=== PATIENT | male | born 1960 | race Two or more races ===

== ENCOUNTER 2018-12-16 19:35 | Inpatient (IN) | payer MEDICARE, MEDICAID ==
--- NOTE | 2018-12-16 20:28 | ED Physician Chart ---
ED Chief Complaint/HPI - Patient Information Date Seen:: 12/16/18 Time Seen:: 20:10 Chief Complaint:: fever History of Present Illness:: Patient had a temperature 100.1 degrees at his extended care facility today. He 's had a right foot ulcer for last 2 weeks. He says slight cough for 1 week productive of sputum. No abdominal pain. Patient's had the same dialysis shunt in the left arm for last 2 years. Patient still produces some urine. Allergies:: Allergies Allergy/AdvReac Type Severity Reaction Status Date / Time No Known Allergies Allergy Verified 12/16/18 19:36 Vitals:: Vital Signs - 8 hr 12/16/18 19:35 Temp 102.4 F HR 105 RR 20 BP 126/69 O2 Sat % 94 Historian:: Patient Review:: Transfer documents Reviewed ED Review of Systems - Review of Systems General/Constitutional: Fever, No chills, No weight loss, No weakness, No diaphoresis, No edema, No loss of appetite Skin: No skin lesions, No rash, No bruising Head: No headache, No light-headedness Eyes: No loss of vision, No pain, No diplopia ENT: No earache, No nasal drainage, No sore throat, No tinnitus Neck: No neck pain, No swelling, No thyromegaly, No stiffness, No mass noted Cardio Vascular: No chest pain, No palpitations, No PND, No orthopnea, No edema Pulmonary: No SOB, No cough, No sputum, No wheezing GI: No nausea, No vomiting, No diarrhea, No pain, No melena, No hematochezia, No constipation, No hematemesis G/U: No dysuria, No frequency, No hematuria Musculoskeletal: No bone or joint pain, No back pain, No muscle pain Endocrine: No polyuria, No polydipsia Psychiatric: No prior psych history, No depression, No anxiety, No suicidal ideation Hematopoietic: No bruising, No lymphadenopathy Allergic/Immuno: No urticaria, No angioedema Neurological: No syncope, No focal symptoms, No weakness, No paresthesia, No headache, No seizure, No dizziness, No confusion, No vertigo ED Past Medical History - Past Medical History Past Medical History: HTN, DM, Seizures, Other (N save renal disease on dialysis ; anemia; anxiety; a pancreatitis; diabetic retinopathy; aortic stenosis) Family History: Heart disease, Diabetes Melitus Social History: Smoker, Other (no current alcohol consumption) Surgical History: Appendectomy, other (dialysis shunt) Family Medical History - Family Member Mother History Unknown: Yes ED Physical Exam - Physical Examination General/Constitutional: Awake, Well-developed, well-nourished, Alert, No distress, GCS 15, Non-toxic appearing, Ambulatory Head: Atraumatic Eyes: Lids, conjuctiva normal, PERRL, EOMI Skin: Well hydrated, No lymphadenopathy Other Skin comments:: About 6 cm in diameter black eschar right heel with slight surrounding erythema ENMT: External ears, nose nl, Nasal exam nl, Lips, teeth, gums nl Neck: Nontender, Full ROM w/o pain, No JVD, No nuchal rigidity, No bruit, No mass, No stridor Respiratory: Nl effort/Exclusion, Clear to Auscultation, No Wheeze/Rhonchi/Rales Cardio Vascular: RRR, NL S1 S2 Other Cardio Vascular comments:: 4/6 systolic murmur GI: No tenderness/rebounding/guarding, No organomegaly, No hernia, Normal BS's, Nondistended, No mass/bruits, No McBurney tenderness : No CVA tenderness Extremities: No tenderness or effusion, Full ROM, normal strength in all extremities, No edema, Normal digits & nails Neuro/Psych: Alert/oriented, No focal deficits Misc: Normal back, No paraspinal tenderness ED Labs/Radiology/EKG Results - Lab Results Results: Laboratory Results WBC 21.4 Th/cmm (4.8-10.8) H* 12/16/18 21:15 RBC 3.39 Mil/cmm (4.30-5.70) L 12/16/18 21:15 Hgb 9.6 gm/dL (12-16) L 12/16/18 21:15 Hct 28.7 % (41.0-60) L 12/16/18 21:15 MCV 84.5 fl (80-99) 12/16/18 21:15 MCH 28.4 pg (26.0-30.0) 12/16/18 21:15 MCHC Differential 33.6 pg (28.0-36.0) 12/16/18 21:15 RDW 13.8 % (11.5-20.0) 12/16/18 21:15 Plt Count 363 Th/cmm (150-400) 12/16/18 21:15 MPV 7.5 fl 12/16/18 21:15 Add Manual Diff YES 12/16/18 21:15 Neutrophils % 89.0 % (40.0-80.0) H 12/16/18 21:15 Lymphocytes % 2.5 % (20.0-50.0) L 12/16/18 21:15 Monocytes % 7.9 % (2.0-10.0) 12/16/18 21:15 Eosinophils % 0.6 % (0.0-5.0) 12/16/18 21:15 Smear Path Review 12/16/18 21:15 Laboratory Results WBC 21.4 Th/cmm (4.8-10.8) H* 12/16/18 21:15 RBC 3.39 Mil/cmm (4.30-5.70) L 12/16/18 21:15 Hgb 9.6 gm/dL (12-16) L 12/16/18 21:15 Hct 28.7 % (41.0-60) L 12/16/18 21:15 MCV 84.5 fl (80-99) 12/16/18 21:15 MCH 28.4 pg (26.0-30.0) 12/16/18 21:15 MCHC Differential 33.6 pg (28.0-36.0) 12/16/18 21:15 RDW 13.8 % (11.5-20.0) 12/16/18 21:15 Plt Count 363 Th/cmm (150-400) 12/16/18 21:15 MPV 7.5 fl 12/16/18 21:15 Add Manual Diff YES 12/16/18 21:15 Neutrophils % 89.0 % (40.0-80.0) H 12/16/18 21:15 Lymphocytes % 2.5 % (20.0-50.0) L 12/16/18 21:15 Monocytes % 7.9 % (2.0-10.0) 12/16/18 21:15 Eosinophils % 0.6 % (0.0-5.0) 12/16/18 21:15 Smear Path Review 12/16/18 21:15 Sodium 128 mEq/L (136-145) L 12/16/18 21:15 Potassium 3.8 mEq/L (3.5-5.1) 12/16/18 21:15 Chloride 88 mEq/L (98-107) L 12/16/18 21:15 Carbon Dioxide 27.9 mEq/L (21.0-31.0) 12/16/18 21:15 Anion Gap 15.9 (7.0-16.0) 12/16/18 21:15 BUN 32 mg/dL (7-25) H 12/16/18 21:15 Creatinine mg/dL (0.7-1.3) 12/16/18 21:15 Est GFR ( Amer) 17.4 ml/min (>90) 12/16/18 21:15 Est GFR (Non-Af Amer) 14.4 ml/min 12/16/18 21:15 BUN/Creatinine Ratio 7.1 12/16/18 21:15 Glucose 396 mg/dL (70-105) H 12/16/18 21:15 Whole Bld Lactic Acid 1.40 mmol/L (0.60-1.99) 12/16/18 21:15 Calcium 9.1 mg/dL (8.6-10.3) 12/16/18 21:15 - EKG Interpretations Rate & Rhythm: sinus tachycardia with a rate of 109 [place]: normal axis Comments:: Anterior septal MD age indeterminate ED Assessment - Assessment General Assessment: Etiology of the patient's fever is uncertain. Urinalysis results are pending. Patient does have a black eschar right heel with slight surrounding erythema indicating cellulitis. Patient covered for both a gram-positive and gram- negative infection with vancomycin and Rocephin. ED Septic Shock - . Is Septic Shock (SBP<90, OR Lactate>4 mmol\L) present?: No - <6hrs of presentation: Vital Signs: Vital Signs - 8 hr 12/16/18 19:35 Temp 102.4 F HR 105 RR 20 BP 126/69 O2 Sat % 94 ED Reassessment (Disposition) - Reassessment Reassessment Condition:: Unchanged - Diagnosis Diagnosis:: Acute febrile illness; renal failure on dialysis; diabetes; hyperglycemia; leukocytosis with a left shift; eschar and cellulitis right heel - Patient Disposition Admitted to:: Telemetry Spoke to:: Washington Muse Admitting Medical Physician:: Washington Muse Condition at Disposition:: Stable, Unchanged
[2018-12-16] MEDS ORDERED: cefTRIAXone 1 GM in Sodium Chloride 0.9% 50 ML IV ONE (20:41)
[2018-12-16 21:24] LABS: HEMOGLOBIN 9.6 gm/dL (12-16); LYMPHOCYTE ABSOLUTE 0.5 Th/cmm (1.5-3.0)
[2018-12-16 21:26] LABS: % EOSINOPHILS 0.6 % (0.0-5.0); % LYMPHOCYTES 2.5 % (20.0-50.0); % MONOCYTES 7.9 % (2.0-10.0); EOSINOPHILE ABSOLUTE 0.1 Th/cmm (0.1-0.4); HEMATOCRIT 28.7 % (41.0-60); MEAN CELL VOLUME 84.5 fl (80-99); MEAN CORPUSCULAR HEMOGLOBIN 28.4 pg (26.0-30.0); MEAN CORPUSCULAR HGB CONC 33.6 pg (28.0-36.0); MEAN PLATELET VOLUME 7.5 fl; MONOCYTE ABSOLUTE 1.7 Th/cmm (0.3-1.0); NEUTROPHILE ABSOLUTE 19.1 Th/cmm (1.8-8.0); PLATELET COUNT 363 Th/cmm (150-400); RED BLOOD COUNT 3.39 Mil/cmm (4.30-5.70); RED CELL DISTRIBUTION WIDTH 13.8 % (11.5-20.0)
[2018-12-16 21:29] LABS: WHITE BLOOD COUNT 21.4 Th/cmm (4.8-10.8)
[2018-12-16 21:39] LABS: ANION GAP 15.9 (7.0-16.0); CALCIUM SERUM 9.1 mg/dL (8.6-10.3); CARBON DIOXIDE 27.9 mEq/L (21.0-31.0); GFR AFRICAN-AMERICAN 17.4 ml/min (>90); GFR NON AFRICAN-AMERICAN 14.4 ml/min; POTASSIUM SERUM 3.8 mEq/L (3.5-5.1)
[2018-12-16 22:01] LABS: BAND NEUTROPHILE 0 % (0-10)
[2018-12-16 22:02] LABS: BASOPHIL 0 % (0-3)
[2018-12-16 22:05] LABS: EOSINOPHIL 0 % (0-5); MONOCYTE 7 % (2-10); NEUTROPHILS 90 % (40-80)
[2018-12-16 22:06] LABS: LYMPHOCYTE 3 % (20-50)
[2018-12-16] MEDS ORDERED: INSULIN HUMAN REGULAR 100 UNITS/ML UNIT SUBQ ONE (22:43)
[2018-12-16] MEDS ORDERED: INSULIN HUMAN REGULAR 100 UNITS/ML UNIT ONE (22:49)
[2018-12-17] MEDS ORDERED: Morphine Sulfate 2 mg/mL 1mL Syr IVP PRN (00:03)
[2018-12-17 00:12] VITALS: BP 138/72
[2018-12-17] MEDS ORDERED: Sodium Chloride 0.9% 1,000 ML IV SCH (00:45)
[2018-12-17] MEDS ORDERED: Dextrose 50% 50 mL Abboject IVP PRN (00:56)
[2018-12-17] MEDS ORDERED: GLUCAGON HCl 1 MG KIT IM PRN (00:56)
[2018-12-17 06:02] LABS: % EOSINOPHILS 1.2 % (0.0-5.0); % LYMPHOCYTES 3.4 % (20.0-50.0); % MONOCYTES 7.3 % (2.0-10.0); % NEUTROPHILS 88.1 % (40.0-80.0); EOSINOPHILE ABSOLUTE 0.2 Th/cmm (0.1-0.4); HEMATOCRIT 27.7 % (41.0-60); HEMOGLOBIN 9.1 gm/dL (12-16); LYMPHOCYTE ABSOLUTE 0.6 Th/cmm (1.5-3.0); MEAN CELL VOLUME 85.6 fl (80-99); MEAN CORPUSCULAR HEMOGLOBIN 28.1 pg (26.0-30.0); MEAN CORPUSCULAR HGB CONC 32.9 pg (28.0-36.0); MEAN PLATELET VOLUME 7.8 fl; MONOCYTE ABSOLUTE 1.4 Th/cmm (0.3-1.0); NEUTROPHILE ABSOLUTE 16.9 Th/cmm (1.8-8.0); PLATELET COUNT 318 Th/cmm (150-400); RED BLOOD COUNT 3.24 Mil/cmm (4.30-5.70); RED CELL DISTRIBUTION WIDTH 13.2 % (11.5-20.0)
[2018-12-17 06:17] LABS: ANION GAP 14.2 (7.0-16.0); CARBON DIOXIDE 28.4 mEq/L (21.0-31.0); CHOLESTEROL 100 mg/dL (<200); GFR AFRICAN-AMERICAN 15.1 ml/min (>90); GFR NON AFRICAN-AMERICAN 12.4 ml/min; HDL -HIGH DENSITY LIPOPROTEIN 17 mg/dL (23-92); POTASSIUM SERUM 3.6 mEq/L (3.5-5.1); TRIGLYCERIDES 249 mg/dL (<150)
[2018-12-17 06:22] LABS: WHITE BLOOD COUNT 19.1 Th/cmm (4.8-10.8)
[2018-12-17 06:29] LABS: CREATININE - SERUM 5.1 mg/dL (0.7-1.3)
[2018-12-17 06:50] LABS: INF A SCREEN NEG FOR INF A; INF B SCREEN NEG FOR INF B
[2018-12-17] MEDS ORDERED: INSULIN LISPRO SLIDING SCALE 100 UNITS/ML UNIT SUBQ SCH (07:30)
--- NOTE | 2018-12-17 07:53 | Diagnostic Imaging Report ---
CHEST X-RAY: AP view INDICATION: pain COMPARISON: None FINDINGS: There is mild elevation of the right hemidiaphragm. Increased interstitial lung markings are noted. There is no focal consolidation or pleural effusions The heart is at the upper limits of normal in size. The osseous structures are intact. Old left midclavicular fracture is noted. Vascular stent of the left upper extremity is partially visualized. IMPRESSION: Increased interstitial lung markings probably due to chronic changes. No evidence of rashida CHF No focal consolidation identified. Left upper extending vascular stent, please correlate with clinical history.
[2018-12-17 08:02] LABS: URINE SOURCE RANDOM
[2018-12-17 08:11] LABS: BAND NEUTROPHILE 0 % (0-10); BASOPHIL 0 % (0-3); EOSINOPHIL 0 % (0-5); LYMPHOCYTE 3 % (20-50); MONOCYTE 7 % (2-10); NEUTROPHILS 90 % (40-80)
[2018-12-17 08:12] LABS: PLATELET ESTIMATE ADEQUATE (NORMAL)
[2018-12-17 08:19] LABS: URINE BILIRUBIN NEGATIVE (NEGATIVE); URINE BLOOD NEGATIVE (NEGATIVE); URINE GLUCOSE (UA) 500 mg/dL (NEGATIVE); URINE KETONE NEGATIVE (NEGATIVE); URINE LEUKOCYTE ESTERASE NEGATIVE (NEGATIVE); URINE MICROSCOPIC INDICATED? YES; URINE NITRATE NEGATIVE (NEGATIVE); URINE PROTEIN >=300 mg/dL (NEGATIVE); URINE UROBILINOGEN 0.2 E.U./dL (0.2 - 1.0)
[2018-12-17 08:26] LABS: URINE COLOR YELLOW
[2018-12-17] MEDS ORDERED: Lactulose 10 Gm/15 mL 30mL UDC PO PRN (08:27)
[2018-12-17 08:28] LABS: URINE CLARITY HAZY (CLEAR)
[2018-12-17 08:36] LABS: URINE BACTERIA FEW /hpf (NONE SEEN); URINE COARSE GRANULAR CAST 0-2 /lpf (NONE SEEN); URINE RBC 0-2 /hpf (0-5)
[2018-12-17] MEDS ORDERED: NUT TX IMPAIRED RENAL FXN SOY PO SCH (09:00)
[2018-12-17] MEDS ORDERED: [UNRECOGNIZED DRUG - OTHER] PO SCH (09:00)
[2018-12-17] MEDS: Levetiracetam 500 mg/5mL 5mL UDSyr *for ORAL USE ONLY PO SCH ×2 (10:14→18:04)
[2018-12-17] MEDS: Vitamin B Complex w/Vitamin C Tab PO SCH (10:15)
[2018-12-17] MEDS: Pantoprazole 40 mg EC Tab PO SCH (10:15)
[2018-12-17] MEDS: INSULIN LISPRO SLIDING SCALE 100 UNITS/ML UNIT SUBQ SCH ×3 (12:04→22:00)
[2018-12-17] MEDS ORDERED: Probiotic Screen MC PRN (14:13)
[2018-12-17] MEDS ORDERED: cefTRIAXone 1 GM in 0.9% NS 50 ML IV SCH (18:00)
[2018-12-17] MEDS: Atorvastatin Calcium 10 MG TAB PO SCH (21:50)
[2018-12-18] MEDS ORDERED: Albumin 25% 25gm/100mL 25 GM/100 ML BTL IV PRN
[2018-12-18] MEDS: Heparin Sod 1,000Units/ML 1,000 UNITS/ML VIAL HD SCH ×2 (00:26→17:04)
--- NOTE | 2018-12-18 02:05 | Consultation ---
DATE OF CONSULTATION: 12/17/2018 SURGICAL CONSULTATION NOTE TIME: 12:47 p.m. HISTORY OF PRESENT ILLNESS: The patient is a 57-year-old male who presents to the [facility] ER with right heel ulcer gangrene and fever of 100.1 at his extended care facility, transferred to the ER. He has a slight cough with 1 week productive sputum. He has end-stage renal disease. The patient has a left arm dialysis shunt, gets ongoing dialysis. He had a fever of 102.4. He has right heel gangrene. He also has a history of left knee fracture and has a brace on there at this time. He has difficulty ambulating at this time. Surgical consultation requested. ALLERGIES: He has no known drug allergies. PAST MEDICAL HISTORY: Hypertension, diabetes, seizures, anxiety, pancreatitis, diabetic retinopathy, aortic stenosis. FAMILY HISTORY: Heart disease and diabetes. SOCIAL HISTORY: Smoker. PAST SURGICAL HISTORY: Appendectomy and arm shunt. PHYSICAL EXAMINATION: VITAL SIGNS: He is 79 kilograms, BMI of 26.8, he has a fever of 101.0 on admission, he has been afebrile, vital signs stable. CHEST: Clear to auscultation bilaterally. GENERAL: He is awake, follows commands, in no acute distress. CARDIAC: Regular rhythm and rate. ABDOMEN: Otherwise, soft, nontender, nondistended. EXTREMITIES: His left leg in a brace. He has knee scars, which are well healed. His right heel, he has a large patch of gangrene, which is malodorous. There is no drainage from the site, but there is a wet gangrene. He does have a palpable posterior tibial pulse but no obvious dorsalis pedis pulse. The foot is warm. He has no ischemic changes of his toes, maybe pressure ulceration. LABORATORY AND DIAGNOSTIC DATA: His white blood cell count was 21.4 on admission down to 19.1 today, H and H is 9 and 27.7, platelet count is 318, he has 0 bands. His sodium is 128, chloride is 89, BUN and creatinine 38 and 5.1, glucose 252, triglycerides 249. His chest x-ray reveals increased interstitial lung markings, probably due to chronic changes. No evidence of rashida CHF. No focal consolidation. Left upper extremity vascular stent, please correlate with clinical history. MEDICATIONS: Include Coreg, Rocephin, hydralazine, insulin, lactulose. He is on Keppra, Cozaar. IMPRESSION/PLAN: The patient with multiple medical problems, multiple consultants on the case. He is poorly ambulatory because of the left knee surgery, reported fracture with a left knee brace. The patient has a significant right gangrenous heel ulcer. His wet gangrene and malodorous probably accounting for the patient's fever and leukocytosis. The patient is on IV antibiotics at this time. I would recommend arterial ultrasound studies to evaluate for arterial insufficiency and elevate the leg on pillows and avoid pressure to the heel, dressing changes at this point, but I would recommend sharp excisional debridement of this site to control bleeding. The patient may have a component of osteomyelitis and it is unstageable at this time until further debridement can be performed. Because of his aortic stenosis, would get Cardiology to evaluate the patient preoperative for anesthesia purposes. [facility]# [id number]
--- NOTE | 2018-12-18 02:44 | Consultation ---
DATE OF CONSULTATION: 12/17/[address] Muse. HISTORY OF PRESENT ILLNESS: This is a 57-year-old male patient. The patient has a right foot ulcer for 2 weeks, which gradually deteriorated. Following this, the patient is admitted. The patient has elevated temperature. PAST MEDICAL HISTORY: Diabetes mellitus type 2, insulin-dependent; diabetic CKD stage V; end-stage renal disease, on dialysis; diabetic peripheral neuropathy; diabetic retinopathy; hyperlipidemia; seizure disorder; and sinus tachycardia. FAMILY HISTORY: Unremarkable. SOCIAL HISTORY: No history of smoking, alcohol abuse. ALLERGIES: No known allergies. PHYSICAL EXAMINATION: VITAL SIGNS: Blood pressure 126/90, pulse 105, and temperature 101. HEAD: Normocephalic. No lumps or bumps. Eyes, pupils, the patient has diabetic retinopathy. NECK: JVD flat. Thyroid not palpable. Lymph nodes not palpable. CHEST: Shows increased AP diameter. No kyphosis or scoliosis. LUNGS: Bilateral bronchovesicular breath sounds. HEART: PMI fifth intercostal space with lateral to midclavicular line. S1, S2. No S3, S4, soft systolic murmur. ABDOMEN: Soft. Liver, spleen not palpable. No organomegaly. Bowel sounds active. NEUROLOGIC: Unremarkable. EXTREMITIES: Peripheral pulses 2+. No pedal edema. CLINICAL IMPRESSION: 1. Right foot ulcer. 2. Hypertension. 3. Diabetes mellitus type 2, insulin-dependent. 4. Seizure disorder. 5. Iron deficiency anemia. 6. Diabetic chronic kidney disease, stage V. 7. End-stage renal disease, on dialysis. 8. Anxiety. 9. History of pancreatitis. 10. Diabetic retinopathy. 11. Diabetic peripheral neuropathy. PLAN: We will continue present management. The patient's EKG unremarkable. The patient is cleared for surgery. JOB# [id number]
--- NOTE | 2018-12-18 03:48 | Consultation ---
DATE OF CONSULTATION: 12/17/2018 INFECTIOUS DISEASE CONSULTATION REFERRING PHYSICIAN: Eze Muse M.D. REASON FOR CONSULTATION: Sepsis. HISTORY OF PRESENT ILLNESS: The patient is a 57-year-old male with past medical history of paraplegia, wheelchair bound; CKD, stage 5, on hemodialysis; hypertension, seizure disorder, diabetes mellitus type 2, pancreatitis, anemia of chronic disease, diabetic retinopathy, aortic stenosis, brought in from nursing facility for fever. On initial evaluation, the patient's temperature was 102.4 degrees Fahrenheit and WBC count was 21,400. The patient also has dry gangrenous wound at the pressure point of the right heel. The patient was started on Rocephin. PAST SURGICAL HISTORY: Includes appendectomy and AV shunt placement in left upper extremity for last 2 years. MEDICATIONS: See medication reconciliation sheet. Antibiotic ruiz, the patient is on Rocephin. ALLERGIES: NKDA. SOCIAL HISTORY: The patient lives in a nursing facility. The patient has history of alcohol use in the past. He has a history of smoking. No drug use. FAMILY HISTORY: Noncontributory. IMMUNIZATION STATUS: Unknown. REVIEW OF SYSTEMS: GENERAL: The patient has fever, but no chills, no weight loss, no weakness. HEENT: No diplopia, no photophobia, no sore throat. RESPIRATORY: No cough, no shortness of breath. CARDIOVASCULAR: No chest pain, no palpitation. GASTROINTESTINAL: No nausea, no vomiting, no diarrhea, no constipation. GENITOURINARY: No dysuria. MUSCULOSKELETAL: No muscle pain, no joint pain. SKIN: The patient has a right heel ulcer. PHYSICAL EXAMINATION: VITAL SIGNS: Current vital signs shows temperature is 99.5 degrees Fahrenheit, pulse is 91, respirations 18, and blood pressure is 160/68. GENERAL: The patient is comfortable, lying in bed, in no acute distress. HEENT: Head is normocephalic, atraumatic. Oral cavity is moist, pink tongue. NECK: Supple, no JVD, no carotid bruit. Trachea in midline. CHEST: Bilateral breath sounds heard. No crackles or wheezing. HEART: S1, S2 within normal limits. Regular rhythm. No murmur, no gallop. ABDOMEN: Soft, nontender, nondistended. Bowel sounds present. EXTREMITIES: No cyanosis, no clubbing, no edema. The patient has dry unstageable ulcer of the right heel at pressure point. There is no discharge, no erythema. The ulcer base is black. CENTRAL NERVOUS SYSTEM: He is alert, awake, and oriented x 3. LABORATORY DATA: Current lab shows WBC count is 19,100, hemoglobin is 9.1, hematocrit is 27.7, platelets are 318,000, neutrophils 88.1%. Sodium is 128, potassium is 3.6, chloride is 89, bicarbonate is 28.4, BUN is 38, creatinine is 5.1, and glucose is 252. Lactic acid was 1.4. Urinalysis, negative leukoesterase, negative nitrite. Influenza A and B screen is negative. IMAGING DATA: Chest x-ray shows chronic changes. IMPRESSION: 1. Sepsis, maybe bacteremia versus other etiology unknown. 2. Right heel decubitus ulcer. 3. Hypertension. 4. Diabetes mellitus type 2. 5. Chronic kidney disease, stage 5, on hemodialysis. 6. Anemia of chronic disease. RECOMMENDATIONS AND PLAN: 1. We will follow the blood cultures. 2. CT of abdomen and pelvis. 3. Antibiotic ruiz, start vancomycin and Zosyn. Thank you, Dr. Eze Muse, for involving me in taking care of this patient. JOB# [id number] CHERYL
--- NOTE | 2018-12-18 04:32 | Consultation ---
DATE OF CONSULTATION: 12/17/2018 FIXED ASSETS ACCOUNTANT: Curry Berger M.D. ATTENDING: Dr. Cj Muse. HISTORY OF PRESENT ILLNESS: This is a 57-year-old male with past medical history of end-stage renal disease on hemodialysis, who came in because of fever. A few hours prior to admission, the patient had a temperature of 100.1 degrees. He has occasional cough, but no serious congestion, sore throat and also possible diarrhea, or dysuria. He then proceeded to the Emergency Room. His temperature was 102.4 degrees. White count was 21.4. Chest x-ray revealed no acute disease. He was started on Rocephin. He has a history of end-stage renal disease on hemodialysis for the last couple of years. He is dialyzed on Tuesdays, and Saturdays at [facility]. PAST MEDICAL HISTORY: 1. End-stage renal disease on hemodialysis. 2. Dyslipidemia. 3. Type 2 diabetes mellitus. 4. Epilepsy. 5. Chronic right heel ulcer. 6. Anemia of chronic disease. 7. Left medial tibial plateau fracture. PAST SURGICAL HISTORY: 1. Status post appendectomy. 2. Status post creation of left AV fistula. CURRENT MEDICATIONS: Currently on acetaminophen, atorvastatin, carvedilol, ceftriaxone, diphenhydramine hydralazine, insulin, lactulose, levetiracetam, losartan, morphine sulfate, pantoprazole, sevelamer, vancomycin. ALLERGIES: No known drug allergies. SOCIAL HISTORY: Denied any history of alcohol or tobacco use. He currently resides at [place]. FAMILY HISTORY: Noncontributory to present illness. REVIEW OF SYSTEMS: Review of 12-point systems were unremarkable except for those signs and symptoms mentioned in my H and P. PHYSICAL EXAMINATION: GENERAL: The patient is alert, verbal, somewhat drowsy, not in any distress. VITAL SIGNS: His blood pressure is 140/49, pulse is 89, temperature is 101.4 degrees. SKIN: Good turgor, warm, no rash, no jaundice appreciated. HEENT: Head normocephalic, atraumatic. Eyes: Extraocular muscles intact. Pupils equal, round, reactive to light and accommodates. Anicteric sclerae. Pale conjunctivae. Nose: Midline nasal septum. Mouth: Dry mucosa, poor dentition. NECK: Supple, no adenopathy, no thyromegaly, no bruits. Trachea palpated in the midline. CHEST AND CARDIOVASCULAR: S1, S2. No rub, murmur or gallop appreciated. Point of maximal impulse fifth intercostal space, left midclavicular line. No abdominal or femoral bruits appreciated. LUNGS: Equal expansion. No use of accessory muscles. No supraclavicular retractions. Decreased breath sounds, few rhonchi, but no rales nor wheezes appreciated. ABDOMEN: Globular, soft, positive for bowel sounds. No bruits either diastolic or systolic. No pulsatile masses. No muscle guarding or rebound. RECTAL: The patient refused. GENITOURINARY: Normal appearing male genitalia. MUSCULOSKELETAL: No effusions present in his joints, but unable to assess his range of motion. EXTREMITIES: No evidence of edema, cyanosis, nor clubbing with palpable femoral, but unable to fully appreciate popliteal and dorsalis pedis pulses. He has I would say 8 x 10 cm black eschar at the heel of his right foot. There is no visible drainage. NEUROLOGIC: The patient is drowsy, but arousable, able to give simple responses and then falls back to sleep. Thus, he was not able to participate in my neuro exam. LABORATORY DATA: Showed a white count of 19.1, hemoglobin 9.1, hematocrit 27.7, platelets 318, polys 88.1%. Sodium 128, potassium 3.6, chloride 89, CO2 of 28, BUN 38, creatinine 5.1, glucose 394, triglycerides 249, cholesterol 100, LDL 26, HDL 17, TSH 0.9. IMPRESSION: 1. End-stage renal disease on hemodialysis. 2. Right heel ulcer, possible osteomyelitis. 3. Dyslipidemia. 4. Type 2 diabetes mellitus with chronic kidney disease. 5. Essential hypertension with chronic kidney disease. 6. History of epilepsy. 7. Anemia of chronic disease. 8. Left medial tibial plateau fracture, status post repair. PLAN: 1. Hemodialysis as scheduled. 2. Follow up wound culture and sensitivity. 3. Also follow up blood culture. 4. Consider switching to Zosyn for better coverage. 5. Consider also MRI of right foot to accurately determine presence of osteomyelitis. 6. Follow up electrolytes and CBC. 7. Antipyretics. JOB# [id number]
[2018-12-18 06:26] LABS: HEMATOCRIT 25.4 % (41.0-60); HEMOGLOBIN 8.4 gm/dL (12-16); MEAN CELL VOLUME 85.5 fl (80-99); MEAN CORPUSCULAR HEMOGLOBIN 28.2 pg (26.0-30.0); MEAN PLATELET VOLUME 8.3 fl; PLATELET COUNT 307 Th/cmm (150-400); RED BLOOD COUNT 2.97 Mil/cmm (4.30-5.70); RED CELL DISTRIBUTION WIDTH 13.5 % (11.5-20.0)
[2018-12-18] MEDS: INSULIN LISPRO SLIDING SCALE 100 UNITS/ML UNIT SUBQ SCH ×4 (06:31→20:00)
[2018-12-18] MEDS: Pantoprazole 40 mg EC Tab PO SCH (06:31)
[2018-12-18 06:45] LABS: ANION GAP 14.8 (7.0-16.0); CALCIUM SERUM 8.6 mg/dL (8.6-10.3); CARBON DIOXIDE 26.3 mEq/L (21.0-31.0); GFR AFRICAN-AMERICAN 11.2 ml/min (>90); GFR NON AFRICAN-AMERICAN 9.2 ml/min; MAGNESIUM 1.8 mg/dL (1.9-2.7); PHOSPHOROUS 1.9 mg/dL (2.5-5.0); POTASSIUM SERUM 4.1 mEq/L (3.5-5.1)
[2018-12-18] MEDS ORDERED: INSULIN ASPART, RECOMBINANT 100 UNITS/ML SUBQ SCH (07:30)
[2018-12-18] MEDS ORDERED: INSULIN ASPART RECOMBINANT SUBQ SCH (07:30)
[2018-12-18 07:50] LABS: WHITE BLOOD COUNT 20.2 Th/cmm (4.8-10.8)
[2018-12-18 07:53] LABS: CREATININE - SERUM 6.6 mg/dL (0.7-1.3)
[2018-12-18 07:54] LABS: BAND NEUTROPHILE 3 % (0-10); BASOPHIL 0 % (0-3); EOSINOPHIL 2 % (0-5); LYMPHOCYTE 6 % (20-50); MONOCYTE 4 % (2-10); NEUTROPHILS 85 % (40-80)
[2018-12-18 07:55] LABS: PLATELET ESTIMATE ADEQUATE (NORMAL)
[2018-12-18] MEDS: Lactobacillus Rhamnosus GG 15 Billion CFU CAP.SPRINK PO SCH (09:12)
[2018-12-18] MEDS: Vitamin B Complex w/Vitamin C Tab PO SCH (09:12)
--- NOTE | 2018-12-18 10:01 | Diagnostic Imaging Report ---
Right lower extremity arterial Doppler study HISTORY: Right heel gangrene arterial deficiency COMPARISON: None Technique: Longitudinal and transverse sonographic images of the right lower extremity arteries were obtained with doppler analysis. FINDINGS: Exam of the right side demonstrates moderate atherosclerosis greatest distally with diffuse monophasic waveforms extending from the right superficial femoral to the right dorsalis pedis artery. No sonographic evidence of occlusion. Right SARAH 0.79 IMPRESSION: Moderate atherosclerotic vascular disease greatest distally. No sonographic evidence of occlusion. If indicated CT or conventional angiography may be obtained for further assessment. Right SARAH 0.79.
--- NOTE | 2018-12-18 10:30 | Diagnostic Imaging Report ---
CT abdomen and pelvis without intravenous contrast Indication: Abdominal pain Comparison: None, Technique: Axial images were obtained from the lung bases to the bilateral proximal femurs without IV contrast. Coronal reconstructions were made. total DLP: 664, CTDI12.2 FINDINGS: Exam is limited due to body habitus. Chronic lung changes are noted with bibasilar passive atelectatic changes. Assessment of the solid organs is limited due to lack of IV contrast. There is diffuse atherosclerosis with coronary artery calcifications. No evidence of focal hepatic lesions. Splenic artery calcifications are noted. No focal lesions. Limited assessment of pancreas sensors no focal lesions. No focal adrenal lesions. There are nonspecific bilateral perinephric inflammatory changes with punctate bilateral renal calcifications. No hydronephrosis. Urinary bladder wall thickening is noted. Small bilateral fat-containing inguinal hernias are noted. There is copious amount of stool throughout the colon. Small amount of free fluid is seen within the right lower quadrant. The appendix cannot be clearly identified. No free air. Degenerative changes of the spine are noted advanced facet L5/S1 with endplate irregularities and 2 mm anterolisthesis probably due to severe facet arthropathy in this level. There is mild anasarca. IMPRESSION: Small amount of free fluid in the right lower quadrant, etiology uncertain. Appendix is not clearly identified. Suspicious for appendicitis is low. Note there may be cecal wall thickening/inflammatory process in this region. Clinical correlation and follow-up is recommended. If indicated short-term follow up CT with IV and oral contrast may be obtained. . Diverticulosis without diverticulitis. Moderate stool is also seen within the colon. Urinary bladder wall thickening which may be due to underlying inflammatory process and cystitis. Mild nonspecific bilateral perinephric inflammatory changes. Diffuse atherosclerosis including coronary artery calcifications. Mild anasarca. Degenerative changes at L4/L5 with endplate sclerotic changes, irregularities and Schmorl's nodes. There is also 2 mm in anterolisthesis at this level likely due to facet arthropathy. No inflammatory process or infectious process causing the degenerative joint disease in this region is less likely, however, clinical correlation is needed.
--- NOTE | 2018-12-18 11:54 | History and Physical ---
History of Present Illness - HPI Chief Complaint: 57 y/o male patient was brought into ER with complaints of fever and cough with phlegm x 1 week. Patient complains of right foot pain and ulcer x 2 weeks. HPI: 57 y/o male patient was admitted to [facility] due to complaints of fever and cough with phlegm x 1 week. Patient complains of right foot pain and ulcer x 2 weeks. Patient has history of Anxiety, Hypertension, Diabetes, Seizures, Renal disease and is on Dialysis. Patient had an ER assessment and had a complete workup done. Arterial Doppler of right lower extremity was performed which showed Moderate Atherosclerotic vascular disease. Patient was diagnosed with Moderate Atherosclerotic vascular disease, Renal failure, On Dialysis, Hyperglycemia, Leukocytosis is with left shift, Eschar and Cellulitis of Right heel, Anemia and Anxiety. Patient will have an ID consult, Tank Storage Supervisor consult and Plastic Surgeon consult for Wound care. I will follow, treat and monitor patient. Patient will continue present treatment plan as ordered. Vital Signs: Last Vital Signs Temp 98.9 F 12/18/18 08:00 Pulse 77 12/18/18 09:20 Resp 18 12/18/18 08:00 BP 137/61 12/18/18 09:20 Pulse Ox 97 12/18/18 08:00 Past Medical History Cardiovascular: Report: HTN Pulmonary: Report: Other (cough with phlegm.) ORDER DETAILER: Report: No Pertinent Hx GI: Report: No Pertinent Hx Psych: Report: Anxiety Musculoskeletal: Report: Other (right foot ulcer.) Rheumatologic: Report: No pertinent Hx Infectious Disease: Report: No Pertinent Hx Renal/: Report: Acute Renal Failure Endocrine: Report: Diabetes Dermatology: Report: Cellulitis - Past Surgical History Past Surgical History: Appendectomy Family Medical History - Family Member Mother History Unknown: Yes Social History Smoke: 1 pack per day Alcohol: None Drugs: None Lives: Group Home Domestic Violence: Negative Health Maintenance Health Maintenance: Other (see chart.) - Medications Home Medications: Home Medication Medication Instructions Recorded Type Amino Acids/Protein Hydrolys 30 ml PO BID 12/16/18 History [Pro-Stat Sugar Free 887 ml] Atorvastatin Calcium [Lipitor] 20 mg PO HS 12/16/18 History Carvedilol [Coreg] 3.125 mg PO Q12H 12/16/18 History Dextrose [Glucose Gel] 15 gm PO PRN PRN 12/16/18 History Diphenhydramine HCL [Benadryl] 25 mg PO Q6H PRN 12/16/18 History Folic Acid [Folate*] 1 mg PO DAILY 12/16/18 History GLUCAGON HCl [Glucagen Diagnostic 1 mg IJ PRN PRN 12/16/18 History Kit] Hydralazine [Apresoline*] 50 mg PO Q8H 12/16/18 History Insulin Aspart, Recombinant 20 unit SUBQ QDAC 12/16/18 History [NovoLOG] Insulin Human Regular [NovoLIN R] See Protocol SUBQ ACHS 12/16/18 History Lactulose 20 gm PO DAILY PRN 12/16/18 History Levetiracetam [Keppra] 500 mg PO DAILY 12/16/18 History Losartan Potassium [Cozaar] 50 mg PO DAILY 12/16/18 History Nut.tx.impaired Renal Fxn,Soy 60 ml PO DAILY 12/16/18 History [Nepro with Carb Steady 1000 ml] Pantoprazole [Protonix] 40 mg PO DAILY 12/16/18 History Sevelamer Carbonate [Renvela] 800 mg PO TID 12/16/18 History Vit B Comp No.3/Folic/C/Biotin 1 tab PO DAILY 12/16/18 History [Nephro-Giorgi Rx Tablet] Other Medications: Please see medication reconciliation sheet. - Allergies Allergies/Adverse Reactions: Allergies Allergy/AdvReac Type Severity Reaction Status Date / Time No Known Allergies Allergy Verified 12/16/18 19:36 Review of Systems - Review of Systems Review of Systems: 57 y/o male patient has right foot ulcer and will be treated with antibiotics and will have wound care. Constitutional: Report: Weakness Eyes: Report: No Significant ENT: Report: No Significant Respiratory: Report: Cough, Other (cough with phlegm.) Cardiovascular: Report: Other (Atherosclerotic vascular disease.) Gastrointestinal: Report: No Significant Genitourinary: Report: No Significant Musculoskeletal: Report: Foot Pain Skin: Report: Other (cellulitis of right heel/foot.) Neurological: Report: Seizures Physical Exam - Physical Exam HEENT: Report: Ears Nose Throat within normal limits Neck: Report: Within normal limits Cardiovascular Systems: Report: +s1/s2 noted, Regular, Rate and Rhythm Respiratory: Report: Other (cough with phlegm.) Abdomen: Report: Non-tender to palpation Back: Report: Inspection of back is within normal limits. Extremities: Report: Other (cellulitis of right heel/foot.) Skin: Report: A wound was noted Neuro/Psych: Report: Mood affect is within normal limits - Lab Results All Lab Results last 24 hours: Laboratory Results - last 24 hr 12/17/18 12/17/18 12/18/18 11:53 16:36 05:50 WBC RBC Hgb Hct MCV MCH MCHC Differential RDW Plt Count MPV Add Manual Diff Band Neutrophils % Neutrophils (Manual) Lymphocytes Monocytes Eosinophils Basophils Platelet Estimate RBC Morph Micro Appear Sodium Potassium Chloride Carbon Dioxide Anion Gap BUN Creatinine Est GFR ( Amer) Est GFR (Non-Af Amer) BUN/Creatinine Ratio Glucose POC Glucose 394 H 327 H Calcium Phosphorus Magnesium Random Vancomycin 15.0 12/18/18 12/18/18 12/18/18 05:50 05:50 06:16 WBC 20.2 H* RBC 2.97 L Hgb 8.4 L Hct 25.4 L MCV 85.5 MCH 28.2 MCHC Differential 33.0 RDW 13.5 Plt Count 307 MPV 8.3 Add Manual Diff YES Band Neutrophils % 3 Neutrophils (Manual) 85 H Lymphocytes 6 L Monocytes 4 Eosinophils 2 Basophils 0 Platelet Estimate ADEQUATE RBC Morph Micro Appear NORMAL Sodium 123 L Potassium 4.1 Chloride 86 L Carbon Dioxide 26.3 Anion Gap 14.8 BUN 54 H Creatinine 6.6 H* Est GFR ( Amer) 11.2 Est GFR (Non-Af Amer) 9.2 BUN/Creatinine Ratio 8.2 Glucose 286 H POC Glucose 246 H Calcium 8.6 Phosphorus 1.9 L Magnesium 1.8 L Random Vancomycin Microbiology 12/16/18 21:27 - Preliminary Blood NO GROWTH AFTER 24 HOURS 12/16/18 21:15 - Preliminary Blood NO GROWTH AFTER 24 HOURS - Assessment Assessment: Moderate Atherosclerotic vascular disease. Renal failure, On Dialysis. Hyperglycemia. Leukocytosis. Eschar and Cellulitis of Right heel Anemia. Anxiety. Hypertension. Diabetes. History of seizures. - Plan Plan: Continuation of care. ID consult, Tank Storage Supervisor consult and Plastic surgeon consult. Wound care and local skin care. Monitor Vitals, Labs- Hemoglobin levels, MRI of right foot. Continue antibiotics and present meds as directed. Accu-checks twice daily. Monitor Diet/Nutritional support. Continue Hemodialysis. Pain Management. Physical therapy. Occupational therapy. Safety precaution. Supportive care. Fall precaution, frequent nursing rounds, and as needed restraints to prevent fall. Continue collaborating with consulting specialists, case management and nursing team. Will Monitor patient and continue current treatment plan as ordered.
--- NOTE | 2018-12-18 15:23 | Infectious Disease Prog Note ---
Infectious Disease Subjective - Review of Systems Service Date: 12/18/18 Events since last encounter: Blood culture grew GPC in two sets. Subjective: Fever curve is imroving. Infectious Disease Objective - Results Result Diagrams: 12/18/18 05:50 12/18/18 05:50 Recent Labs: Laboratory Last Values WBC 20.2 Th/cmm (4.8-10.8) H* 12/18/18 05:50 RBC 2.97 Mil/cmm (4.30-5.70) L 12/18/18 05:50 Hgb 8.4 gm/dL (12-16) L 12/18/18 05:50 Hct 25.4 % (41.0-60) L 12/18/18 05:50 MCV 85.5 fl (80-99) 12/18/18 05:50 MCH 28.2 pg (26.0-30.0) 12/18/18 05:50 MCHC Differential 33.0 pg (28.0-36.0) 12/18/18 05:50 RDW 13.5 % (11.5-20.0) 12/18/18 05:50 Plt Count 307 Th/cmm (150-400) 12/18/18 05:50 MPV 8.3 fl 12/18/18 05:50 Add Manual Diff YES 12/18/18 05:50 Neutrophils % 88.1 % (40.0-80.0) H 12/17/18 05:45 Band Neutrophils % 3 % (0-10) 12/18/18 05:50 Lymphocytes % 3.4 % (20.0-50.0) L 12/17/18 05:45 Monocytes % 7.3 % (2.0-10.0) 12/17/18 05:45 Eosinophils % 1.2 % (0.0-5.0) 12/17/18 05:45 Basophils % 0.0 % (0.0-2.0) 12/17/18 05:45 Neutrophils (Manual) 85 % (40-80) H 12/18/18 05:50 Lymphocytes 6 % (20-50) L 12/18/18 05:50 Monocytes 4 % (2-10) 12/18/18 05:50 Eosinophils 2 % (0-5) 12/18/18 05:50 Basophils 0 % (0-3) 12/18/18 05:50 Platelet Estimate ADEQUATE (NORMAL) 12/18/18 05:50 RBC Morph Micro Appear NORMAL (NORMAL) 12/18/18 05:50 Smear Path Review 12/16/18 21:15 Sodium 123 mEq/L (136-145) L 12/18/18 05:50 Potassium 4.1 mEq/L (3.5-5.1) 12/18/18 05:50 Chloride 86 mEq/L (98-107) L 12/18/18 05:50 Carbon Dioxide 26.3 mEq/L (21.0-31.0) 12/18/18 05:50 Anion Gap 14.8 (7.0-16.0) 12/18/18 05:50 BUN 54 mg/dL (7-25) H 12/18/18 05:50 Creatinine 6.6 mg/dL (0.7-1.3) H* 12/18/18 05:50 Est GFR ( Amer) 11.2 ml/min (>90) 12/18/18 05:50 Est GFR (Non-Af Amer) 9.2 ml/min 12/18/18 05:50 BUN/Creatinine Ratio 8.2 12/18/18 05:50 Glucose 286 mg/dL (70-105) H 12/18/18 05:50 POC Glucose 260 MG/DL (70 - 105) H 12/18/18 12:20 Whole Bld Lactic Acid 1.40 mmol/L (0.60-1.99) 12/16/18 21:15 Calcium 8.6 mg/dL (8.6-10.3) 12/18/18 05:50 Phosphorus 1.9 mg/dL (2.5-5.0) L 12/18/18 05:50 Magnesium 1.8 mg/dL (1.9-2.7) L 12/18/18 05:50 Troponin I 0.05 ng/mL (0.01-0.05) 12/16/18 21:15 Triglycerides 249 mg/dL (<150) H 12/17/18 05:45 Cholesterol 100 mg/dL (<200) 12/17/18 05:45 LDL Cholesterol Direct 26 mg/dL (75-193) L 12/17/18 05:45 HDL Cholesterol 17 mg/dL (23-92) L 12/17/18 05:45 TSH 0.90 uIU/ml (0.34-5.60) 12/17/18 05:45 Urine Source RANDOM 12/17/18 08:01 Urine Color YELLOW 12/17/18 08:01 Urine Clarity HAZY (CLEAR) 12/17/18 08:01 Urine pH 7.0 (4.6 - 8.0) 12/17/18 08:01 Ur Specific [place] 1.015 (1.005-1.030) 12/17/18 08:01 Urine Protein >=300 mg/dL (NEGATIVE) 12/17/18 08:01 Urine Glucose (UA) 500 mg/dL (NEGATIVE) H 12/17/18 08:01 Urine Ketones NEGATIVE mg/dL (NEGATIVE) 12/17/18 08:01 Urine Blood NEGATIVE (NEGATIVE) 12/17/18 08:01 Urine Nitrate NEGATIVE (NEGATIVE) 12/17/18 08:01 Urine Bilirubin NEGATIVE (NEGATIVE) 12/17/18 08:01 Urine Urobilinogen 0.2 E.U./dL (0.2 - 1.0) 12/17/18 08:01 Ur Leukocyte Esterase NEGATIVE (NEGATIVE) 12/17/18 08:01 Urine RBC 0-2 /hpf (0-5) H 12/17/18 08:01 Urine WBC 2-5 /hpf (0-5) 12/17/18 08:01 Ur Epithelial Cells /lpf (FEW) 12/17/18 08:01 Urine Bacteria FEW /hpf (NONE SEEN) 12/17/18 08:01 Coarse Granular Casts 0-2 /lpf (NONE SEEN) H 12/17/18 08:01 Random Vancomycin 15.0 ug/mL (5.0-40.0) 12/18/18 05:50 Influenza A (Rapid) NEG FOR INF A 12/16/18 05:50 Influenza B (Rapid) NEG FOR INF B 12/16/18 05:50 - Physical Exam Vitals and I&O: Vital Signs Temp 98.8 F 12/18/18 11:46 Pulse 84 12/18/18 11:46 Resp 20 12/18/18 11:46 BP 135/63 12/18/18 11:46 Pulse Ox 96 12/18/18 11:46 Intake & Output 05/12/18/18 12/18/18 18:59 06:59 18:59 Intake Total 110 50 Balance 110 50 Weight (lbs) 79.832 kg Intake: Intake, IV Amount 50 50 Piperacillin Sodium/ 50 50 Tazobact 2.25 gm In Sodium Chloride 0.9% 50 ml @ 100 mls/hr IV Q8H [facility] Rx#:[id number] Oral 60 Other: # Voids 2 Stool Characteristics Soft Soft Weight Source Bedscale Active Medications: Current Medications Acetaminophen (Tylenol) 650 mg PO Q6H PRN PRN Reason: Pain or Fever >101 Stop: 02/14/19 23:51 Last Admin: 12/18/18 04:50 Dose: 650 mg Atorvastatin Calcium (Lipitor) 20 mg PO HS [facility] Stop: 02/15/19 20:59 Last Admin: 12/17/18 21:50 Dose: 20 mg Carvedilol (Coreg) 3.125 mg PO BIDWM [facility] Stop: 02/15/19 17:59 Last Admin: 12/18/18 09:19 Dose: Not Given Dextrose (D50w) 50 ml IVP PRN PRN PRN Reason: Blood Glucose less than 70 Stop: 02/15/19 00:55 Dextrose (Glutose 40%) 18.75 gm PO PRN PRN PRN Reason: Blood Glucose less than 70 Stop: 02/15/19 00:55 Diphenhydramine HCl (Benadryl) 25 mg PO Q6H PRN PRN Reason: Itching Stop: 02/15/19 08:22 Docusate Sodium (Colace) 250 mg PO DAILY [facility] Stop: 02/15/19 13:44 Last Admin: 12/18/18 09:12 Dose: 250 mg Folic Acid (Folate) 1 mg PO DAILY [facility] Stop: 02/15/19 08:59 Last Admin: 12/18/18 09:11 Dose: 1 mg Glucagon (Glucagen) 1 mg IM PRN PRN PRN Reason: Blood Glucose less than 70 Stop: 02/15/19 00:55 Heparin Sodium (Porcine) (Heparin) 0 units HD UD [facility] Stop: 12/19/18 00:00 Last Admin: 12/18/18 00:26 Dose: Not Given Hydralazine HCl (Apresoline) 50 mg PO Q8H [facility] Stop: 02/15/19 08:29 Last Admin: 12/18/18 09:20 Dose: Not Given Albumin Human (Albuminar 25%) 25 gm in 100 mls @ 50 mls/hr IV PRN PRN PRN Reason: BP Support During HD Stop: 12/18/18 23:00 Piperacillin Sod/Tazobactam (Sod 2.25 gm/ Sodium Chloride) 50 mls @ 100 mls/hr IV Q8H [facility] Stop: 02/15/19 16:59 Last Admin: 12/18/18 09:11 Dose: 100 mls/hr Insulin Human Lispro (Humalog Insulin Sliding Scale) 0 units SUBQ ACHS [facility]; Protocol Stop: 02/15/19 11:29 Last Admin: 12/18/18 14:00 Dose: 3 units Insulin Human Lispro (Humalog) 20 unit SUBQ QDAC [facility] Stop: 02/17/19 07:29 Lactobacillus Rhamnosus (Culturelle 15b) 1 each PO DAILY [facility] Stop: 02/16/19 08:59 Last Admin: 12/18/18 09:12 Dose: 1 each Lactulose (Cephulac) 20 gm PO DAILY PRN PRN Reason: Constipation Stop: 02/15/19 08:26 Losartan Potassium (Cozaar) 50 mg PO DAILY [facility] Stop: 02/15/19 08:59 Last Admin: 12/18/18 09:19 Dose: Not Given Miscellaneous (Probiotic Screen) 1 ea PRN PRN PRN Reason: PROTOCOL Stop: 02/15/19 14:12 Miscellaneous (Vancomycin Iv Per Pharmacy) 1 [facility] PRN [facility] Stop: 02/15/19 15:44 Morphine Sulfate (Morphine) 1 mg IVP Q4HR PRN PRN Reason: Pain (Moderate) Stop: 02/15/19 00:02 Last Admin: 12/17/18 23:30 Dose: 1 mg Pantoprazole Sodium (Protonix) 40 mg PO QDAC [facility] Stop: 02/15/19 08:59 Last Admin: 12/18/18 06:31 Dose: 40 mg Sevelamer Carbonate (Renvela) 800 mg PO TIDWM [facility] Stop: 02/15/19 11:59 Last Admin: 12/18/18 12:21 Dose: 800 mg Vitamin B Complex/Vit C/Folic Acid (Vitamin B Complex W/Vitamin C) 1 tab PO DAILY [facility] Stop: 02/15/19 09:59 Last Admin: 12/18/18 09:12 Dose: 1 tab General: no acute distress, well developed, well nourished HEENT: atraumatic, normocephalic, PERRLA, EOMI Neck: supple, no thyromegaly Cardiovascular: S1S2, regular Lungs: clear to auscultation bilaterally, clear to percussion Abdomen: soft, no tender, no distended Extremities: AVF/AVG (Left arm shunt), other (Right heel unstageable ulcer with necrotic skin with malodor.), no cyanosis, no clubbing, no edema Neurological: awake, alert, oriented Skin: intact, other (Left heel wound) Infectious Disease Assmt/Plan - Assessment Assessment: 1. Staph sepsis, r/o endocarditis. 2. Left heel ulcer. 3. DM2 4. HTN. 5. Right heel ulcer. Unstageable./ 6. Anemia of CD. - Plan Plan: Will continue vanco IV and Zosyn. Wound care. Repeat blood cultures. Echo cardiogram. CT chest r/o septic emboli. 3P bone scan. Debridement. DW patient. Nutritional Asmnt/Malnutr-PDOC - Dietary Evaluation Malnutrition Findings (Please click <Entered> for more info): Nutritional Asmnt/Malnutrition Start: 12/17/18 15: 58 Text: Status: Active Freq: Protocol: Document 12/17/18 15:58 LCHENG (Rec: 12/17/18 16:28 LCHENG [id number]) Nutritional Asmnt/Malnutrition Patient General Information Nutritional Screening Moderate Risk Consult Diagnosis right heel wound Pertinent Medical Hx/Surgical Hx HTN, DM, seizures, renal disease on dialysis, anemia, anxiety, pancreatitis, diabetic retinopathy, aortic stenosis, appendectomy, dialysis shunt. Subjective Information Consult received for right heel wound. Pt seen in bed, awake, speech not very clear. RN reported pt is on dialysis. Current Diet Order/ Nutrition Support 2gm Na Pertinent Medications lipitor, colace, folate, humalog, culturelle, protonix, piperacillin, renvela, vit B complex/vit C Pertinent Labs 12/17 Na 128, Cl 89, BUN 38, Cr 5.1, Glucose 252, POC 241-394 12/16 Na 128, Cl 88, BUN 32, Glucose 396, POC 376 Nutritional Hx/Data Height 1.73 m Height (Calculated Centimeters) 172.7 Current Weight (lbs) 79.832 kg Weight (Calculated Kilograms) 79.8 Weight (Calculated Grams) 37429.3 [place] Body Weight 154 Body Mass Index (BMI) 26.7 Weight Status Overweight GI Symptoms GI Symptoms None Last BM none Difficult in: None Usual diet at home STU, renal CCHO at care facility per pt chart. Skin Integrity/Comment: right heel wound Current %PO Good (75-100%) Estimated Nutritional Goals BEE in Kcals: Using Current wt Calories/Kcals/Kg 25-30 Kcals Calculated [id number] Protein: Using Current wt Protein g/k-1.2 Protein Calculated 80-96 Fluid: ml per MD Nutritional Problem 1. Problem Problem altered nutrition related labs Etiology renal dysfunction, hyperglycemia Signs/Symptoms: BUN 38, Cr 5.1, Glucose 252, POC 241-394 Malnutrition Alert Is there a minimum of two criteria No selected? Query Text:Check all the applicable criteria. A minimum of two criteria are recommended for diagnosis of either severe or non-severe malnutrition. Malnutrition Related to Morbid Obesity Malnutrition related to morbid obesity No Intervention/Recommendation Comments 1. Recommend adding CCHO diet, renal diet with 80g protein d /t DM and renal disease on dialysis. RN Juliano notified. 2. Monitor PO intake, wt, labs and skin integrity 3. F/U as high risk in 2-3 days Expected Outcomes/Goals Expected Outcomes/Goals 1. PO intake to meet at least 75% of nutritional needs. 2. Wt stability, skin to remain intact, labs to approach WNL.
--- NOTE | 2018-12-18 15:48 | General Progress Note ---
Subjective - Review of Systems Service Date: 12/18/18 Subjective: alert, somewhat depressed Objective - Results Result Diagrams: 12/18/18 05:50 12/18/18 05:50 Recent Labs: Laboratory Last Values WBC 20.2 Th/cmm (4.8-10.8) H* 12/18/18 05:50 RBC 2.97 Mil/cmm (4.30-5.70) L 12/18/18 05:50 Hgb 8.4 gm/dL (12-16) L 12/18/18 05:50 Hct 25.4 % (41.0-60) L 12/18/18 05:50 MCV 85.5 fl (80-99) 12/18/18 05:50 MCH 28.2 pg (26.0-30.0) 12/18/18 05:50 MCHC Differential 33.0 pg (28.0-36.0) 12/18/18 05:50 RDW 13.5 % (11.5-20.0) 12/18/18 05:50 Plt Count 307 Th/cmm (150-400) 12/18/18 05:50 MPV 8.3 fl 12/18/18 05:50 Add Manual Diff YES 12/18/18 05:50 Neutrophils % 88.1 % (40.0-80.0) H 12/17/18 05:45 Band Neutrophils % 3 % (0-10) 12/18/18 05:50 Lymphocytes % 3.4 % (20.0-50.0) L 12/17/18 05:45 Monocytes % 7.3 % (2.0-10.0) 12/17/18 05:45 Eosinophils % 1.2 % (0.0-5.0) 12/17/18 05:45 Basophils % 0.0 % (0.0-2.0) 12/17/18 05:45 Neutrophils (Manual) 85 % (40-80) H 12/18/18 05:50 Lymphocytes 6 % (20-50) L 12/18/18 05:50 Monocytes 4 % (2-10) 12/18/18 05:50 Eosinophils 2 % (0-5) 12/18/18 05:50 Basophils 0 % (0-3) 12/18/18 05:50 Platelet Estimate ADEQUATE (NORMAL) 12/18/18 05:50 RBC Morph Micro Appear NORMAL (NORMAL) 12/18/18 05:50 Smear Path Review 12/16/18 21:15 Sodium 123 mEq/L (136-145) L 12/18/18 05:50 Potassium 4.1 mEq/L (3.5-5.1) 12/18/18 05:50 Chloride 86 mEq/L (98-107) L 12/18/18 05:50 Carbon Dioxide 26.3 mEq/L (21.0-31.0) 12/18/18 05:50 Anion Gap 14.8 (7.0-16.0) 12/18/18 05:50 BUN 54 mg/dL (7-25) H 12/18/18 05:50 Creatinine 6.6 mg/dL (0.7-1.3) H* 12/18/18 05:50 Est GFR ( Amer) 11.2 ml/min (>90) 12/18/18 05:50 Est GFR (Non-Af Amer) 9.2 ml/min 12/18/18 05:50 BUN/Creatinine Ratio 8.2 12/18/18 05:50 Glucose 286 mg/dL (70-105) H 12/18/18 05:50 POC Glucose 260 MG/DL (70 - 105) H 12/18/18 12:20 Whole Bld Lactic Acid 1.40 mmol/L (0.60-1.99) 12/16/18 21:15 Calcium 8.6 mg/dL (8.6-10.3) 12/18/18 05:50 Phosphorus 1.9 mg/dL (2.5-5.0) L 12/18/18 05:50 Magnesium 1.8 mg/dL (1.9-2.7) L 12/18/18 05:50 Troponin I 0.05 ng/mL (0.01-0.05) 12/16/18 21:15 Triglycerides 249 mg/dL (<150) H 12/17/18 05:45 Cholesterol 100 mg/dL (<200) 12/17/18 05:45 LDL Cholesterol Direct 26 mg/dL (75-193) L 12/17/18 05:45 HDL Cholesterol 17 mg/dL (23-92) L 12/17/18 05:45 TSH 0.90 uIU/ml (0.34-5.60) 12/17/18 05:45 Urine Source RANDOM 12/17/18 08:01 Urine Color YELLOW 12/17/18 08:01 Urine Clarity HAZY (CLEAR) 12/17/18 08:01 Urine pH 7.0 (4.6 - 8.0) 12/17/18 08:01 Ur Specific [place] 1.015 (1.005-1.030) 12/17/18 08:01 Urine Protein >=300 mg/dL (NEGATIVE) 12/17/18 08:01 Urine Glucose (UA) 500 mg/dL (NEGATIVE) H 12/17/18 08:01 Urine Ketones NEGATIVE mg/dL (NEGATIVE) 12/17/18 08:01 Urine Blood NEGATIVE (NEGATIVE) 12/17/18 08:01 Urine Nitrate NEGATIVE (NEGATIVE) 12/17/18 08:01 Urine Bilirubin NEGATIVE (NEGATIVE) 12/17/18 08:01 Urine Urobilinogen 0.2 E.U./dL (0.2 - 1.0) 12/17/18 08:01 Ur Leukocyte Esterase NEGATIVE (NEGATIVE) 12/17/18 08:01 Urine RBC 0-2 /hpf (0-5) H 12/17/18 08:01 Urine WBC 2-5 /hpf (0-5) 12/17/18 08:01 Ur Epithelial Cells /lpf (FEW) 12/17/18 08:01 Urine Bacteria FEW /hpf (NONE SEEN) 12/17/18 08:01 Coarse Granular Casts 0-2 /lpf (NONE SEEN) H 12/17/18 08:01 Random Vancomycin 15.0 ug/mL (5.0-40.0) 12/18/18 05:50 Influenza A (Rapid) NEG FOR INF A 12/16/18 05:50 Influenza B (Rapid) NEG FOR INF B 12/16/18 05:50 - Physical Exam Vitals and I&O: Vital Signs Temp 98.8 F 12/18/18 11:46 Pulse 84 12/18/18 11:46 Resp 20 12/18/18 11:46 BP 135/63 12/18/18 11:46 Pulse Ox 96 12/18/18 11:46 Intake & Output 12/17/18 12/18/18 12/18/18 18:59 06:59 18:59 Intake Total 110 50 Balance 110 50 Weight (lbs) 79.832 kg 79.832 kg Intake: Intake, IV Amount 50 50 Piperacillin Sodium/ 50 50 Tazobact 2.25 gm In Sodium Chloride 0.9% 50 ml @ 100 mls/hr IV Q8H [facility] Rx#:[id number] Oral 60 Other: # Voids 2 Stool Characteristics Soft Soft Soft Weight Source Bedscale Bedscale Active Medications: Current Medications Acetaminophen (Tylenol) 650 mg PO Q6H PRN PRN Reason: Pain or Fever >101 Stop: 02/14/19 23:51 Last Admin: 12/18/18 04:50 Dose: 650 mg Atorvastatin Calcium (Lipitor) 20 mg PO HS [facility] Stop: 02/15/19 20:59 Last Admin: 12/17/18 21:50 Dose: 20 mg Carvedilol (Coreg) 3.125 mg PO BIDWM [facility] Stop: 02/15/19 17:59 Last Admin: 12/18/18 09:19 Dose: Not Given Dextrose (D50w) 50 ml IVP PRN PRN PRN Reason: Blood Glucose less than 70 Stop: 02/15/19 00:55 Dextrose (Glutose 40%) 18.75 gm PO PRN PRN PRN Reason: Blood Glucose less than 70 Stop: 02/15/19 00:55 Diphenhydramine HCl (Benadryl) 25 mg PO Q6H PRN PRN Reason: Itching Stop: 02/15/19 08:22 Docusate Sodium (Colace) 250 mg PO DAILY [facility] Stop: 02/15/19 13:44 Last Admin: 12/18/18 09:12 Dose: 250 mg Folic Acid (Folate) 1 mg PO DAILY [facility] Stop: 02/15/19 08:59 Last Admin: 12/18/18 09:11 Dose: 1 mg Glucagon (Glucagen) 1 mg IM PRN PRN PRN Reason: Blood Glucose less than 70 Stop: 02/15/19 00:55 Heparin Sodium (Porcine) (Heparin) 0 units HD UD [facility] Stop: 12/19/18 00:00 Last Admin: 12/18/18 00:26 Dose: Not Given Hydralazine HCl (Apresoline) 50 mg PO Q8H [facility] Stop: 02/15/19 08:29 Last Admin: 12/18/18 09:20 Dose: Not Given Albumin Human (Albuminar 25%) 25 gm in 100 mls @ 50 mls/hr IV PRN PRN PRN Reason: BP Support During HD Stop: 12/18/18 23:00 Piperacillin Sod/Tazobactam (Sod 2.25 gm/ Sodium Chloride) 50 mls @ 100 mls/hr IV Q8H [facility] Stop: 02/15/19 16:59 Last Admin: 12/18/18 09:11 Dose: 100 mls/hr Magnesium Sulfate 1 gm/ Sodium (Chloride) 52 mls @ 52 mls/hr IV X1 ONE Stop: 12/18/18 16:32 Insulin Glargine (Lantus Insulin) 14 units SUBQ HS [facility] Stop: 02/16/19 20:59 Insulin Human Lispro (Humalog Insulin Sliding Scale) 0 units SUBQ ACHS [facility]; Protocol Stop: 02/15/19 11:29 Last Admin: 12/18/18 14:00 Dose: 3 units Insulin Human Lispro (Humalog) 20 unit SUBQ QDAC [facility] Stop: 02/17/19 07:29 Lactobacillus Rhamnosus (Culturelle 15b) 1 each PO DAILY [facility] Stop: 02/16/19 08:59 Last Admin: 12/18/18 09:12 Dose: 1 each Lactulose (Cephulac) 20 gm PO DAILY PRN PRN Reason: Constipation Stop: 02/15/19 08:26 Losartan Potassium (Cozaar) 50 mg PO DAILY [facility] Stop: 02/15/19 08:59 Last Admin: 12/18/18 09:19 Dose: Not Given Miscellaneous (Probiotic Screen) 1 ea PRN PRN PRN Reason: PROTOCOL Stop: 02/15/19 14:12 Miscellaneous (Vancomycin Iv Per Pharmacy) 1 ea PRN [facility] Stop: 02/15/19 15:44 Morphine Sulfate (Morphine) 1 mg IVP Q4HR PRN PRN Reason: Pain (Moderate) Stop: 02/15/19 00:02 Last Admin: 12/17/18 23:30 Dose: 1 mg Pantoprazole Sodium (Protonix) 40 mg PO QDAC [facility] Stop: 02/15/19 08:59 Last Admin: 12/18/18 06:31 Dose: 40 mg Vitamin B Complex/Vit C/Folic Acid (Vitamin B Complex W/Vitamin C) 1 tab PO DAILY [facility] Stop: 02/15/19 09:59 Last Admin: 12/18/18 09:12 Dose: 1 tab General: Alert, No acute distress HEENT: Atraumatic, Mucous membr. moist/pink Neck: Supple, +2 carotid pulse wo bruit Cardiovascular: Regular rate, Normal S1, Normal S2 Lungs: Clear to auscultation Abdomen: Bowel sounds, Soft Extremities: Pulses, no Edema Neurological: Sensation intact Skin: no Rash Psych/Mental Status: Mood NL Assessment/Plan - Assessment Assessment: ESRD on HD Right Heel Ulcer, possible Osteo Dyslipidemia T2DM Ess Htn Epilepsy Anemia of CD Moderate PAD SARAH 0.79 - Plan Plan: Lab - Result Diagrams 12/18/18 05:50 12/18/18 05:50 Current Medications Acetaminophen (Tylenol) 650 mg PO Q6H PRN PRN Reason: Pain or Fever >101 Stop: 02/14/19 23:51 Last Admin: 12/18/18 04:50 Dose: 650 mg Atorvastatin Calcium (Lipitor) 20 mg PO HS [facility] Stop: 02/15/19 20:59 Last Admin: 12/17/18 21:50 Dose: 20 mg Carvedilol (Coreg) 3.125 mg PO BIDWM [facility] Stop: 02/15/19 17:59 Last Admin: 12/18/18 09:19 Dose: Not Given Dextrose (D50w) 50 ml IVP PRN PRN PRN Reason: Blood Glucose less than 70 Stop: 02/15/19 00:55 Dextrose (Glutose 40%) 18.75 gm PO PRN PRN PRN Reason: Blood Glucose less than 70 Stop: 02/15/19 00:55 Diphenhydramine HCl (Benadryl) 25 mg PO Q6H PRN PRN Reason: Itching Stop: 02/15/19 08:22 Docusate Sodium (Colace) 250 mg PO DAILY [facility] Stop: 02/15/19 13:44 Last Admin: 12/18/18 09:12 Dose: 250 mg Folic Acid (Folate) 1 mg PO DAILY [facility] Stop: 02/15/19 08:59 Last Admin: 12/18/18 09:11 Dose: 1 mg Glucagon (Glucagen) 1 mg IM PRN PRN PRN Reason: Blood Glucose less than 70 Stop: 02/15/19 00:55 Heparin Sodium (Porcine) (Heparin) 0 units HD UD [facility] Stop: 12/19/18 00:00 Last Admin: 12/18/18 00:26 Dose: Not Given Hydralazine HCl (Apresoline) 50 mg PO Q8H [facility] Stop: 02/15/19 08:29 Last Admin: 12/18/18 09:20 Dose: Not Given Albumin Human (Albuminar 25%) 25 gm in 100 mls @ 50 mls/hr IV PRN PRN PRN Reason: BP Support During HD Stop: 12/18/18 23:00 Piperacillin Sod/Tazobactam (Sod 2.25 gm/ Sodium Chloride) 50 mls @ 100 mls/hr IV Q8H [facility] Stop: 02/15/19 16:59 Last Admin: 12/18/18 09:11 Dose: 100 mls/hr Magnesium Sulfate 1 gm/ Sodium (Chloride) 52 mls @ 52 mls/hr IV X1 ONE Stop: 12/18/18 16:32 Insulin Glargine (Lantus Insulin) 14 units SUBQ HS [facility] Stop: 02/16/19 20:59 Insulin Human Lispro (Humalog Insulin Sliding Scale) 0 units SUBQ ACHS [facility]; Protocol Stop: 02/15/19 11:29 Last Admin: 12/18/18 14:00 Dose: 3 units Insulin Human Lispro (Humalog) 20 unit SUBQ QDAC [facility] Stop: 02/17/19 07:29 Lactobacillus Rhamnosus (Culturelle 15b) 1 each PO DAILY [facility] Stop: 02/16/19 08:59 Last Admin: 12/18/18 09:12 Dose: 1 each Lactulose (Cephulac) 20 gm PO DAILY PRN PRN Reason: Constipation Stop: 02/15/19 08:26 Losartan Potassium (Cozaar) 50 mg PO DAILY [facility] Stop: 02/15/19 08:59 Last Admin: 12/18/18 09:19 Dose: Not Given Miscellaneous (Probiotic Screen) 1 ea MC PRN PRN PRN Reason: PROTOCOL Stop: 02/15/19 14:12 Miscellaneous (Vancomycin Iv Per Pharmacy) 1 ea MC PRN [facility] Stop: 02/15/19 15:44 Morphine Sulfate (Morphine) 1 mg IVP Q4HR PRN PRN Reason: Pain (Moderate) Stop: 02/15/19 00:02 Last Admin: 12/17/18 23:30 Dose: 1 mg Pantoprazole Sodium (Protonix) 40 mg PO QDAC [facility] Stop: 02/15/19 08:59 Last Admin: 12/18/18 06:31 Dose: 40 mg Vitamin B Complex/Vit C/Folic Acid (Vitamin B Complex W/Vitamin C) 1 tab PO DAILY [facility] Stop: 02/15/19 09:59 Last Admin: 12/18/18 09:12 Dose: 1 tab Lab - Result Diagrams 12/18/18 05:50 12/18/18 05:50 pt. scheduled for HD today DC Sevelamer 2/2 to low P04 replace Mag Start Lantus 2/2 DM OOC also Epogen WBC same @ 20 f/u electrolytes, cbc in am Nutritional Asmnt/Malnutr-PDOC - Dietary Evaluation Malnutrition Findings (Please click <Entered> for more info): Nutritional Asmnt/Malnutrition Start: 12/17/18 15: 58 Text: Status: Active Freq: Protocol: Document 12/17/18 15:58 COURTNEY (Rec: 12/17/18 16:28 COURTNEY [id number]) Nutritional Asmnt/Malnutrition Patient General Information Nutritional Screening Moderate Risk Consult Diagnosis right heel wound Pertinent Medical Hx/Surgical Hx HTN, DM, seizures, renal disease on dialysis, anemia, anxiety, pancreatitis, diabetic retinopathy, aortic stenosis, appendectomy, dialysis shunt. Subjective Information Consult received for right heel wound. Pt seen in bed, awake, speech not very clear. RN reported pt is on dialysis. Current Diet Order/ Nutrition Support 2gm Na Pertinent Medications lipitor, colace, folate, humalog, culturelle, protonix, piperacillin, renvela, vit B complex/vit C Pertinent Labs 12/17 Na 128, Cl 89, BUN 38, Cr 5.1, Glucose 252, POC 241-394 12/16 Na 128, Cl 88, BUN 32, Glucose 396, POC 376 Nutritional Hx/Data Height 1.73 m Height (Calculated Centimeters) 172.7 Current Weight (lbs) 79.832 kg Weight (Calculated Kilograms) 79.8 Weight (Calculated Grams) 19030.3 [place] Body Weight 154 Body Mass Index (BMI) 26.7 Weight Status Overweight GI Symptoms GI Symptoms None Last BM none Difficult in: None Usual diet at home STU, renal CCHO at care facility per pt chart. Skin Integrity/Comment: right heel wound Current %PO Good (75-100%) Estimated Nutritional Goals BEE in Kcals: Using Current wt Calories/Kcals/Kg 25-30 Kcals Calculated 5437-1160 Protein: Using Current wt Protein g/k-1.2 Protein Calculated 80-96 Fluid: ml per MD Nutritional Problem 1. Problem Problem altered nutrition related labs Etiology renal dysfunction, hyperglycemia Signs/Symptoms: BUN 38, Cr 5.1, Glucose 252, POC 241-394 Malnutrition Alert Is there a minimum of two criteria No selected? Query Text:Check all the applicable criteria. A minimum of two criteria are recommended for diagnosis of either severe or non-severe malnutrition. Malnutrition Related to Morbid Obesity Malnutrition related to morbid obesity No Intervention/Recommendation Comments 1. Recommend adding CCHO diet, renal diet with 80g protein d /t DM and renal disease on dialysis. CALIN Henao notified. 2. Monitor PO intake, wt, labs and skin integrity 3. F/U as high risk in 2-3 days Expected Outcomes/Goals Expected Outcomes/Goals 1. PO intake to meet at least 75% of nutritional needs. 2. Wt stability, skin to remain intact, labs to approach WNL.
[2018-12-18] MEDS ORDERED: Epoetin Alfa 20000 Units/mL Vial SUBQ SCH (16:00)
[2018-12-18] MEDS: Atorvastatin Calcium 10 MG TAB PO SCH (19:59)
[2018-12-18] MEDS: Insulin Glargine 100 units/ml 10ml Vial SUBQ SCH (19:59)
--- NOTE | 2018-12-19 04:18 | Progress Notes ---
DATE: 12/18/2018 SUBJECTIVE: This 57-year-old male was seen and examined. The patient's status remains the same. The patient is here with a diagnosis of sepsis, hypertension, diabetes type 2, diabetic chronic kidney disease, end-stage renal disease on hemodialysis, hyperlipidemia, epilepsy, anemia of chronic disease, right heel decubitus ulcer, also had diabetic retinopathy, and aortic stenosis. His status remained the same. PHYSICAL EXAMINATION: VITAL SIGNS: Heart rate was ranging between 92-108, blood pressure ranged from 163/67-133/50, respirations was 18, O2 saturation 98, temperature was 101.5. SKIN: Normal. HEAD: Normocephalic. EYES: Conjunctivae were pink. There is no icterus in the eyes. Pupils reacting to light. NECK: There were no increased jugular venous distention, no thyromegaly, no lymphadenopathy. Carotids equal on both sides. CHEST: Bilaterally symmetrical. Moves well with respiration. Respiratory movements equal both sides. Trachea is central. There is note to percussion. Breath sounds, few basilar rales. CARDIOVASCULAR SYSTEM: PMI not well localized. There is no pulsation or thrill. No parasternal heave. S1 normal, S2 physiologic. There were no S3, no rub. ABDOMEN: Soft, no tenderness, no rigidity, no guarding, no organomegaly. Bowel sounds normal. EXTREMITIES: No cyanosis, no clubbing, no edema, no calf tenderness. Peripheral pulses diminished. The patient has an ulcer on the right heel. IMPRESSION: Sepsis, hypertension, diabetes type 2, diabetic chronic kidney disease; end-stage renal disease on hemodialysis, hyperlipidemia, epilepsy, anemia of chronic disease, right heel decubitus ulcer. Suggest to continue present management. We will follow him. JOB# [id number]
[2018-12-19 06:26] LABS: HEMATOCRIT 25.3 % (41.0-60); HEMOGLOBIN 8.4 gm/dL (12-16); MEAN CORPUSCULAR HEMOGLOBIN 28.6 pg (26.0-30.0); MEAN CORPUSCULAR HGB CONC 33.3 pg (28.0-36.0); MEAN PLATELET VOLUME 8.7 fl; PLATELET COUNT 307 Th/cmm (150-400); RED BLOOD COUNT 2.94 Mil/cmm (4.30-5.70); RED CELL DISTRIBUTION WIDTH 13.5 % (11.5-20.0)
[2018-12-19] MEDS: Pantoprazole 40 mg EC Tab PO SCH (06:34)
[2018-12-19] MEDS: INSULIN LISPRO 100 UNIT/ML VIAL SUBQ SCH (06:35)
[2018-12-19 06:40] LABS: ANION GAP 14.7 (7.0-16.0); CALCIUM SERUM 8.6 mg/dL (8.6-10.3); CARBON DIOXIDE 24.6 mEq/L (21.0-31.0); GFR AFRICAN-AMERICAN 14.1 ml/min (>90); GFR NON AFRICAN-AMERICAN 11.7 ml/min; MAGNESIUM 1.8 mg/dL (1.9-2.7); PHOSPHOROUS 1.4 mg/dL (2.5-5.0); POTASSIUM SERUM 4.3 mEq/L (3.5-5.1)
[2018-12-19] MEDS: INSULIN LISPRO SLIDING SCALE 100 UNITS/ML UNIT SUBQ SCH ×4 (07:46→20:13)
[2018-12-19 07:50] LABS: CREATININE - SERUM 5.4 mg/dL (0.7-1.3)
[2018-12-19] MEDS: Lactobacillus Rhamnosus GG 15 Billion CFU CAP.SPRINK PO SCH (08:21)
[2018-12-19] MEDS: Vitamin B Complex w/Vitamin C Tab PO SCH (08:21)
[2018-12-19 08:22] LABS: BAND NEUTROPHILE 0 % (0-10); BASOPHIL 0 % (0-3); EOSINOPHIL 0 % (0-5); LYMPHOCYTE 6 % (20-50); MONOCYTE 6 % (2-10); NEUTROPHILS 88 % (40-80); PLATELET ESTIMATE ADEQUATE (NORMAL)
--- NOTE | 2018-12-19 11:26 | Progress Notes ---
DATE: 12/18/2018 TIME: 4:30 p.m. OBJECTIVE: VITAL SIGNS: The patient is afebrile. Vital signs stable. GENERAL: He is resting in bed comfortably, in no acute distress. HEENT AND NECK: Within normal limits. CHEST: Clear to auscultation bilaterally. HEART: Regular rate. ABDOMEN: Soft, nontender, nondistended. EXTREMITIES: He has a left knee in a brace. His right heel has a wet and dry areas of gangrene, malodorous. Foot is warm, but there is no palpable dorsalis pedis pulse. There is a faint posterior tibial pulse that I can feel, I believe. LABORATORY DATA: His white blood cell count 20.2, H and H are 8 and 25, platelet count is 307. His sodium is 123, chloride is 86, BUN and creatinine 54 and 6.6, glucose 286. MEDICATIONS: Include Coreg, Epogen, heparin, hydralazine, insulin, Cozaar, vancomycin and Zosyn. The arterial extremity study reveals moderate atherosclerotic vascular disease, greatest distally. No sonographic evidence of occlusion. If indicated, CT or conventional angiogram may be obtained for further assessment: Marked diffuse monophasic waveforms extending from the right superficial femoral to the right dorsalis pedis artery. The CT abdomen and pelvis shows small amount of free fluid in the right lower quadrant. Appendix not clearly identified, suspicious for appendicitis is low. Note, there may be cecal wall thickening, inflammatory process in the region. Diverticulosis without diverticulitis. Urinary bladder wall thickening, which may be due to underlying inflammatory process and cystitis, mild nonspecific bilateral perinephric inflammatory changes. Diffuse atherosclerotic including coronary artery calcifications, mild anasarca. Degenerative changes at L4-L5 with endplate sclerotic changes irregularities and Schmorl nodes 2 mm and anterolisthesis at this level, likely due to facet arthropathy. No inflammatory process or infectious process causing degenerative joint disease in the region is less likely; however, clinical correlation is needed. Dr. Li, the infectious disease specialist, has requested for a bone scan to be done. He is asking that the surgical debridement not occur at this time until the bone scan is done. This will change the management as the patient has osteomyelitis. Discussed with OR team and the licensed retail supervisor. At this time, the OR here at this hospital is nonoperational. Plans are likely to transfer this patient to [facility], at which place the debridement of the right heel can be performed. Continue IV antibiotics at this time. It appears that the blood flow is probably adequate to heal this area once the debridement was performed as there is at least monophasic waveforms in the dorsalis pedis vessel. I am yet to speak with family regarding the consent as I understand the mother is hoping to speak with me. A phone call will be placed to family today. [facility]# [id number]
--- NOTE | 2018-12-19 15:14 | General Progress Note ---
Subjective - Review of Systems Service Date: 12/19/18 Subjective: sleeping, comfortable Objective - Results Result Diagrams: 12/19/18 06:14 12/19/18 06:14 Recent Labs: Laboratory Last Values WBC 23.0 Th/cmm (4.8-10.8) H* 12/19/18 06:14 RBC 2.94 Mil/cmm (4.30-5.70) L 12/19/18 06:14 Hgb 8.4 gm/dL (12-16) L 12/19/18 06:14 Hct 25.3 % (41.0-60) L 12/19/18 06:14 MCV 86.0 fl (80-99) 12/19/18 06:14 MCH 28.6 pg (26.0-30.0) 12/19/18 06:14 MCHC Differential 33.3 pg (28.0-36.0) 12/19/18 06:14 RDW 13.5 % (11.5-20.0) 12/19/18 06:14 Plt Count 307 Th/cmm (150-400) 12/19/18 06:14 MPV 8.7 fl 12/19/18 06:14 Add Manual Diff YES 12/19/18 06:14 Neutrophils % 88.1 % (40.0-80.0) H 12/17/18 05:45 Band Neutrophils % 0 % (0-10) 12/19/18 06:14 Lymphocytes % 3.4 % (20.0-50.0) L 12/17/18 05:45 Monocytes % 7.3 % (2.0-10.0) 12/17/18 05:45 Eosinophils % 1.2 % (0.0-5.0) 12/17/18 05:45 Basophils % 0.0 % (0.0-2.0) 12/17/18 05:45 Neutrophils (Manual) 88 % (40-80) H 12/19/18 06:14 Lymphocytes 6 % (20-50) L 12/19/18 06:14 Monocytes 6 % (2-10) 12/19/18 06:14 Eosinophils 0 % (0-5) 12/19/18 06:14 Basophils 0 % (0-3) 12/19/18 06:14 Platelet Estimate ADEQUATE (NORMAL) 12/19/18 06:14 RBC Morph Micro Appear NORMAL (NORMAL) 12/19/18 06:14 Smear Path Review 12/16/18 21:15 Sodium 125 mEq/L (136-145) L 12/19/18 06:14 Potassium 4.3 mEq/L (3.5-5.1) 12/19/18 06:14 Chloride 90 mEq/L (98-107) L 12/19/18 06:14 Carbon Dioxide 24.6 mEq/L (21.0-31.0) 12/19/18 06:14 Anion Gap 14.7 (7.0-16.0) 12/19/18 06:14 BUN 40 mg/dL (7-25) H 12/19/18 06:14 Creatinine 5.4 mg/dL (0.7-1.3) H* 12/19/18 06:14 Est GFR ( Amer) 14.1 ml/min (>90) 12/19/18 06:14 Est GFR (Non-Af Amer) 11.7 ml/min 12/19/18 06:14 BUN/Creatinine Ratio 7.4 12/19/18 06:14 Glucose 386 mg/dL (70-105) H D 12/19/18 06:14 POC Glucose 359 MG/DL (70 - 105) H 12/19/18 06:21 Whole Bld Lactic Acid 1.40 mmol/L (0.60-1.99) 12/16/18 21:15 Calcium 8.6 mg/dL (8.6-10.3) 12/19/18 06:14 Phosphorus 1.4 mg/dL (2.5-5.0) L 12/19/18 06:14 Magnesium 1.8 mg/dL (1.9-2.7) L 12/19/18 06:14 Troponin I 0.05 ng/mL (0.01-0.05) 12/16/18 21:15 Triglycerides 249 mg/dL (<150) H 12/17/18 05:45 Cholesterol 100 mg/dL (<200) 12/17/18 05:45 LDL Cholesterol Direct 26 mg/dL (75-193) L 12/17/18 05:45 HDL Cholesterol 17 mg/dL (23-92) L 12/17/18 05:45 TSH 0.90 uIU/ml (0.34-5.60) 12/17/18 05:45 Urine Source RANDOM 12/17/18 08:01 Urine Color YELLOW 12/17/18 08:01 Urine Clarity HAZY (CLEAR) 12/17/18 08:01 Urine pH 7.0 (4.6 - 8.0) 12/17/18 08:01 Ur Specific [place] 1.015 (1.005-1.030) 12/17/18 08:01 Urine Protein >=300 mg/dL (NEGATIVE) 12/17/18 08:01 Urine Glucose (UA) 500 mg/dL (NEGATIVE) H 12/17/18 08:01 Urine Ketones NEGATIVE mg/dL (NEGATIVE) 12/17/18 08:01 Urine Blood NEGATIVE (NEGATIVE) 12/17/18 08:01 Urine Nitrate NEGATIVE (NEGATIVE) 12/17/18 08:01 Urine Bilirubin NEGATIVE (NEGATIVE) 12/17/18 08:01 Urine Urobilinogen 0.2 E.U./dL (0.2 - 1.0) 12/17/18 08:01 Ur Leukocyte Esterase NEGATIVE (NEGATIVE) 12/17/18 08:01 Urine RBC 0-2 /hpf (0-5) H 12/17/18 08:01 Urine WBC 2-5 /hpf (0-5) 12/17/18 08:01 Ur Epithelial Cells /lpf (FEW) 12/17/18 08:01 Urine Bacteria FEW /hpf (NONE SEEN) 12/17/18 08:01 Coarse Granular Casts 0-2 /lpf (NONE SEEN) H 12/17/18 08:01 Random Vancomycin 17.4 ug/mL (5.0-40.0) 12/19/18 06:14 Influenza A (Rapid) NEG FOR INF A 12/16/18 05:50 Influenza B (Rapid) NEG FOR INF B 12/16/18 05:50 - Physical Exam Vitals and I&O: Vital Signs Temp 98.5 F 12/19/18 12:00 Pulse 78 12/19/18 12:00 Resp 18 12/19/18 13:00 BP 129/59 12/19/18 12:00 Pulse Ox 93 12/19/18 12:00 Intake & Output 12/18/18 12/19/18 12/19/18 18:59 06:59 18:59 Intake Total 600 50 50 Output Total 2000 50 Balance -1400 0 50 Weight (lbs) 79.832 kg 79.832 kg 83.915 kg Intake: Intake, IV Amount 100 50 50 Piperacillin Sodium/ 100 50 50 Tazobact 2.25 gm In Sodium Chloride 0.9% 50 ml @ 100 mls/hr IV Q8H [facility] Rx#:[id number] Oral 500 Output: Gastric Drainage 2000 Urine 50 Other: Stool Characteristics Soft Soft Soft Weight Source Bedscale Bedscale Bedscale Active Medications: Current Medications Acetaminophen (Tylenol) 650 mg PO Q6H PRN PRN Reason: Pain or Fever >101 Stop: 02/14/19 23:51 Last Admin: 12/18/18 19:47 Dose: 650 mg Atorvastatin Calcium (Lipitor) [address] [facility] Stop: 02/15/19 20:59 Last Admin: 12/18/18 19:59 Dose: 20 mg Carvedilol (Coreg) 3.[address] [facility] Stop: 02/15/19 17:59 Last Admin: 12/19/18 08:23 Dose: 3.125 mg Dextrose (D50w) 50 ml IVP PRN PRN PRN Reason: Blood Glucose less than 70 Stop: 02/15/19 00:55 Dextrose (Glutose 40%) 18.75 gm PO PRN PRN PRN Reason: Blood Glucose less than 70 Stop: 02/15/19 00:55 Diphenhydramine HCl (Benadryl) 25 mg PO Q6H PRN PRN Reason: Itching Stop: 02/15/19 08:22 Last Admin: 12/18/18 22:06 Dose: 25 mg Docusate Sodium (Colace) [address] [facility] Stop: 02/15/19 13:44 Last Admin: 12/19/18 08:21 Dose: 250 mg Epoetin Joe (Epogen) 10,[address] [facility] Stop: 02/16/19 15:59 Last Admin: 12/18/18 15:59 Dose: 10,000 units Folic Acid (Folate) [address] [facility] Stop: 02/15/19 08:59 Last Admin: 12/19/18 08:21 Dose: 1 mg Glucagon (Glucagen) 1 mg IM PRN PRN PRN Reason: Blood Glucose less than 70 Stop: 02/15/19 00:55 Hydralazine HCl (Apresoline) [address] [facility] Stop: 02/15/19 08:29 Last Admin: 12/19/18 08:20 Dose: 50 mg Piperacillin Sod/Tazobactam (Sod 2.25 gm/ Sodium Chloride) 50 mls @ 100 mls/hr IV Q8H [facility] Stop: 02/15/19 16:59 Last Infusion: 12/19/18 08:48 Dose: Infused Insulin Glargine (Lantus Insulin) [address] [facility] Stop: 02/16/19 20:59 Last Admin: 12/18/18 19:59 Dose: 14 units Insulin Human Lispro (Humalog) [address] [facility] Stop: 02/17/19 07:29 Last Admin: 12/19/18 06:35 Dose: 20 units Insulin Human Lispro (Humalog Insulin Sliding Scale) [address] [facility]; Protocol Stop: 02/15/19 11:29 Last Admin: 12/19/18 11:37 Dose: 4 units Lactobacillus Rhamnosus (Culturelle 15b) [address] [facility] Stop: 02/16/19 08:59 Last Admin: 12/19/18 08:21 Dose: 1 each Lactulose (Cephulac) 20 gm PO DAILY PRN PRN Reason: Constipation Stop: 02/15/19 08:26 Losartan Potassium (Cozaar) [address] [facility] Stop: 02/15/19 08:59 Last Admin: 12/19/18 08:21 Dose: 50 mg Miscellaneous (Probiotic Screen) 1 ea PRN PRN PRN Reason: PROTOCOL Stop: 02/15/19 14:12 Miscellaneous (Vancomycin Iv Per Pharmacy) [address] [facility] Stop: 02/15/19 15:44 Morphine Sulfate (Morphine) 1 mg IVP Q4HR PRN PRN Reason: Pain (Moderate) Stop: 02/15/19 00:02 Last Admin: 12/17/18 23:30 Dose: 1 mg Pantoprazole Sodium (Protonix) [address] [facility] Stop: 02/15/19 08:59 Last Admin: 12/19/18 06:34 Dose: 40 mg Vitamin B Complex/Vit C/Folic Acid (Vitamin B Complex W/Vitamin C) [address] [facility] Stop: 02/15/19 09:59 Last Admin: 12/19/18 08:21 Dose: 1 tab General: Alert, No acute distress HEENT: Atraumatic, Mucous membr. moist/pink Neck: Supple, +2 carotid pulse wo bruit Cardiovascular: Regular rate, Normal S1, Normal S2 Lungs: Clear to auscultation Abdomen: Bowel sounds, Soft Extremities: Pulses, no Edema Neurological: Sensation intact Skin: no Rash Psych/Mental Status: Mood NL Assessment/Plan - Assessment Assessment: ESRD on HD Right Heel Ulcer, possible Osteo Dyslipidemia T2DM Ess Htn Epilepsy Anemia of CD Moderate PAD SARAH 0.79 - Plan Plan: Lab - Result Diagrams 12/18/18 05:50 12/18/18 05:50 Current Medications Acetaminophen (Tylenol) 650 mg PO Q6H PRN PRN Reason: Pain or Fever >101 Stop: 02/14/19 23:51 Last Admin: 12/18/18 04:50 Dose: 650 mg Atorvastatin Calcium (Lipitor) 20 mg PO HS [facility] Stop: 02/15/19 20:59 Last Admin: 12/17/18 21:50 Dose: 20 mg Carvedilol (Coreg) 3.125 mg PO BIDWM [facility] Stop: 02/15/19 17:59 Last Admin: 12/18/18 09:19 Dose: Not Given Dextrose (D50w) 50 ml IVP PRN PRN PRN Reason: Blood Glucose less than 70 Stop: 02/15/19 00:55 Dextrose (Glutose 40%) 18.75 gm PO PRN PRN PRN Reason: Blood Glucose less than 70 Stop: 02/15/19 00:55 Diphenhydramine HCl (Benadryl) 25 mg PO Q6H PRN PRN Reason: Itching Stop: 02/15/19 08:22 Docusate Sodium (Colace) 250 mg PO DAILY [facility] Stop: 02/15/19 13:44 Last Admin: 12/18/18 09:12 Dose: 250 mg Folic Acid (Folate) 1 mg PO DAILY [facility] Stop: 02/15/19 08:59 Last Admin: 12/18/18 09:11 Dose: 1 mg Glucagon (Glucagen) 1 mg IM PRN PRN PRN Reason: Blood Glucose less than 70 Stop: 02/15/19 00:55 Heparin Sodium (Porcine) (Heparin) 0 units HD UD [facility] Stop: 12/19/18 00:00 Last Admin: 12/18/18 00:26 Dose: Not Given Hydralazine HCl (Apresoline) [address] [facility] Stop: 02/15/19 08:29 Last Admin: 12/18/18 09:20 Dose: Not Given Albumin Human (Albuminar 25%) 25 gm in 100 mls @ 50 mls/hr IV PRN PRN PRN Reason: BP Support During HD Stop: 12/18/18 23:00 Piperacillin Sod/Tazobactam (Sod 2.25 gm/ Sodium Chloride) 50 mls @ 100 mls/hr IV Q8H [facility] Stop: 02/15/19 16:59 Last Admin: 12/18/18 09:11 Dose: 100 mls/hr Magnesium Sulfate 1 gm/ Sodium (Chloride) 52 mls @ 52 mls/hr IV X1 ONE Stop: 12/18/18 16:32 Insulin Glargine (Lantus Insulin) [address] [facility] Stop: 02/16/19 20:59 Insulin Human Lispro (Humalog Insulin Sliding Scale) [address] [facility]; Protocol Stop: 02/15/19 11:29 Last Admin: 12/18/18 14:00 Dose: 3 units Insulin Human Lispro (Humalog) [address] [facility] Stop: 02/17/19 07:29 Lactobacillus Rhamnosus (Culturelle 15b) [address] [facility] Stop: 02/16/19 08:59 Last Admin: 12/18/18 09:12 Dose: 1 each Lactulose (Cephulac) 20 gm PO DAILY PRN PRN Reason: Constipation Stop: 02/15/19 08:26 Losartan Potassium (Cozaar) [address] [facility] Stop: 02/15/19 08:59 Last Admin: 12/18/18 09:19 Dose: Not Given Miscellaneous (Probiotic Screen) 1 ea MC PRN PRN PRN Reason: PROTOCOL Stop: 02/15/19 14:12 Miscellaneous (Vancomycin Iv Per Pharmacy) [address] [facility] Stop: 02/15/19 15:44 Morphine Sulfate (Morphine) 1 mg IVP Q4HR PRN PRN Reason: Pain (Moderate) Stop: 02/15/19 00:02 Last Admin: 12/17/18 23:30 Dose: 1 mg Pantoprazole Sodium (Protonix) 40 mg PO QDAC [facility] Stop: 02/15/19 08:59 Last Admin: 12/18/18 06:31 Dose: 40 mg Vitamin B Complex/Vit C/Folic Acid (Vitamin B Complex W/Vitamin C) 1 tab PO DAILY [facility] Stop: 02/15/19 09:59 Last Admin: 12/18/18 09:12 Dose: 1 tab Lab - Result Diagrams 12/19/18 06:14 12/19/18 06:14 pt. dialyzed yesterday & tolerated it well DC Sevelamer 2/2 to low P04 replace Mag, P04 Start Lantus 2/2 DM OOC also Epogen WBC same @ 23 f/u electrolytes, cbc in am possible debridement in am Nutritional Asmnt/Malnutr-PDOC - Dietary Evaluation Malnutrition Findings (Please click <Entered> for more info): Nutritional Asmnt/Malnutrition Start: 12/17/18 15: 58 Text: Status: Active Freq: Protocol: Document 12/17/18 15:58 LCCL[facility] (Rec: 12/17/18 16:28 [facility] [id number]) Nutritional Asmnt/Malnutrition Patient General Information Nutritional Screening Moderate Risk Consult Diagnosis right heel wound Pertinent Medical Hx/Surgical Hx HTN, DM, seizures, renal disease on dialysis, anemia, anxiety, pancreatitis, diabetic retinopathy, aortic stenosis, appendectomy, dialysis shunt. Subjective Information Consult received for right heel wound. Pt seen in bed, awake, speech not very clear. RN reported pt is on dialysis. Current Diet Order/ Nutrition Support 2gm Na Pertinent Medications lipitor, colace, folate, humalog, culturelle, protonix, piperacillin, renvela, vit B complex/vit C Pertinent Labs 12/17 Na 128, Cl 89, BUN 38, Cr 5.1, Glucose 252, POC 241-394 12/16 Na 128, Cl 88, BUN 32, Glucose 396, POC 376 Nutritional Hx/Data Height 1.73 m Height (Calculated Centimeters) 172.7 Current Weight (lbs) 79.832 kg Weight (Calculated Kilograms) 79.8 Weight (Calculated Grams) 59241.3 [place] Body Weight 154 Body Mass Index (BMI) 26.7 Weight Status Overweight GI Symptoms GI Symptoms None Last BM none Difficult in: None Usual diet at home STU, renal CCHO at care facility per pt chart. Skin Integrity/Comment: right heel wound Current %PO Good (75-100%) Estimated Nutritional Goals BEE in Kcals: Using Current wt Calories/Kcals/Kg 25-30 Kcals Calculated 7876-6239 Protein: Using Current wt Protein g/k-1.2 Protein Calculated 80-96 Fluid: ml per MD Nutritional Problem 1. Problem Problem altered nutrition related labs Etiology renal dysfunction, hyperglycemia Signs/Symptoms: BUN 38, Cr 5.1, Glucose 252, POC [id number] Malnutrition Alert Is there a minimum of two criteria No selected? Query Text:Check all the applicable criteria. A minimum of two criteria are recommended for diagnosis of either severe or non-severe malnutrition. Malnutrition Related to Morbid Obesity Malnutrition related to morbid obesity No Intervention/Recommendation Comments 1. Recommend adding CCHO diet, renal diet with 80g protein d /t DM and renal disease on dialysis. CALIN Henao notified. 2. Monitor PO intake, wt, labs and skin integrity 3. F/U as high risk in 2-3 days Expected Outcomes/Goals Expected Outcomes/Goals 1. PO intake to meet at least 75% of nutritional needs. 2. Wt stability, skin to remain intact, labs to approach WNL.
[2018-12-19] MEDS ORDERED: Mag Sulfate 2gm/50mL Premix 2 GM/50 ML BAG IV ONE (15:15)
[2018-12-19] MEDS ORDERED: Sodium Phosphate 20 MMOLE in Sodium Chloride 0.9% 250 ML IV ONE (15:15)
[2018-12-19] MEDS: Insulin Glargine 100 units/ml 10ml Vial SUBQ SCH (20:14)
[2018-12-19] MEDS: Atorvastatin Calcium 10 MG TAB PO SCH (20:15)
--- NOTE | 2018-12-19 21:24 | Infectious Disease Prog Note ---
Infectious Disease Subjective - Review of Systems Service Date: 12/19/18 Subjective: Fever curve is improving. Infectious Disease Objective - Results Result Diagrams: 12/19/18 06:14 12/19/18 06:14 Recent Labs: Laboratory Last Values WBC 23.0 Th/cmm (4.8-10.8) H* 12/19/18 06:14 RBC 2.94 Mil/cmm (4.30-5.70) L 12/19/18 06:14 Hgb 8.4 gm/dL (12-16) L 12/19/18 06:14 Hct 25.3 % (41.0-60) L 12/19/18 06:14 MCV 86.0 fl (80-99) 12/19/18 06:14 MCH 28.6 pg (26.0-30.0) 12/19/18 06:14 MCHC Differential 33.3 pg (28.0-36.0) 12/19/18 06:14 RDW 13.5 % (11.5-20.0) 12/19/18 06:14 Plt Count 307 Th/cmm (150-400) 12/19/18 06:14 MPV 8.7 fl 12/19/18 06:14 Add Manual Diff YES 12/19/18 06:14 Neutrophils % 88.1 % (40.0-80.0) H 12/17/18 05:45 Band Neutrophils % 0 % (0-10) 12/19/18 06:14 Lymphocytes % 3.4 % (20.0-50.0) L 12/17/18 05:45 Monocytes % 7.3 % (2.0-10.0) 12/17/18 05:45 Eosinophils % 1.2 % (0.0-5.0) 12/17/18 05:45 Basophils % 0.0 % (0.0-2.0) 12/17/18 05:45 Neutrophils (Manual) 88 % (40-80) H 12/19/18 06:14 Lymphocytes 6 % (20-50) L 12/19/18 06:14 Monocytes 6 % (2-10) 12/19/18 06:14 Eosinophils 0 % (0-5) 12/19/18 06:14 Basophils 0 % (0-3) 12/19/18 06:14 Platelet Estimate ADEQUATE (NORMAL) 12/19/18 06:14 RBC Morph Micro Appear NORMAL (NORMAL) 12/19/18 06:14 Smear Path Review 12/16/18 21:15 Sodium 125 mEq/L (136-145) L 12/19/18 06:14 Potassium 4.3 mEq/L (3.5-5.1) 12/19/18 06:14 Chloride 90 mEq/L (98-107) L 12/19/18 06:14 Carbon Dioxide 24.6 mEq/L (21.0-31.0) 12/19/18 06:14 Anion Gap 14.7 (7.0-16.0) 12/19/18 06:14 BUN 40 mg/dL (7-25) H 12/19/18 06:14 Creatinine 5.4 mg/dL (0.7-1.3) H* 12/19/18 06:14 Est GFR ( Amer) 14.1 ml/min (>90) 12/19/18 06:14 Est GFR (Non-Af Amer) 11.7 ml/min 12/19/18 06:14 BUN/Creatinine Ratio 7.4 12/19/18 06:14 Glucose 386 mg/dL (70-105) H D 12/19/18 06:14 POC Glucose 366 MG/DL (70 - 105) H 12/19/18 20:04 Whole Bld Lactic Acid 1.40 mmol/L (0.60-1.99) 12/16/18 21:15 Calcium 8.6 mg/dL (8.6-10.3) 12/19/18 06:14 Phosphorus 1.4 mg/dL (2.5-5.0) L 12/19/18 06:14 Magnesium 1.8 mg/dL (1.9-2.7) L 12/19/18 06:14 Troponin I 0.05 ng/mL (0.01-0.05) 12/16/18 21:15 Triglycerides 249 mg/dL (<150) H 12/17/18 05:45 Cholesterol 100 mg/dL (<200) 12/17/18 05:45 LDL Cholesterol Direct 26 mg/dL (75-193) L 12/17/18 05:45 HDL Cholesterol 17 mg/dL (23-92) L 12/17/18 05:45 TSH 0.90 uIU/ml (0.34-5.60) 12/17/18 05:45 Urine Source RANDOM 12/17/18 08:01 Urine Color YELLOW 12/17/18 08:01 Urine Clarity HAZY (CLEAR) 12/17/18 08:01 Urine pH 7.0 (4.6 - 8.0) 12/17/18 08:01 Ur Specific [place] 1.015 (1.005-1.030) 12/17/18 08:01 Urine Protein >=300 mg/dL (NEGATIVE) 12/17/18 08:01 Urine Glucose (UA) 500 mg/dL (NEGATIVE) H 12/17/18 08:01 Urine Ketones NEGATIVE mg/dL (NEGATIVE) 12/17/18 08:01 Urine Blood NEGATIVE (NEGATIVE) 12/17/18 08:01 Urine Nitrate NEGATIVE (NEGATIVE) 12/17/18 08:01 Urine Bilirubin NEGATIVE (NEGATIVE) 12/17/18 08:01 Urine Urobilinogen 0.2 E.U./dL (0.2 - 1.0) 12/17/18 08:01 Ur Leukocyte Esterase NEGATIVE (NEGATIVE) 12/17/18 08:01 Urine RBC 0-2 /hpf (0-5) H 12/17/18 08:01 Urine WBC 2-5 /hpf (0-5) 12/17/18 08:01 Ur Epithelial Cells /lpf (FEW) 12/17/18 08:01 Urine Bacteria FEW /hpf (NONE SEEN) 12/17/18 08:01 Coarse Granular Casts 0-2 /lpf (NONE SEEN) H 12/17/18 08:01 Random Vancomycin 17.4 ug/mL (5.0-40.0) 12/19/18 06:14 Influenza A (Rapid) NEG FOR INF A 12/16/18 05:50 Influenza B (Rapid) NEG FOR INF B 12/16/18 05:50 - Physical Exam Vitals and I&O: Vital Signs Temp 98.2 F 12/19/18 20:00 Pulse 76 12/19/18 20:00 Resp 18 12/19/18 21:00 BP 133/57 12/19/18 20:00 Pulse Ox 94 12/19/18 20:00 Intake & Output 12/19/18 12/19/18 12/20/18 06:59 18:59 06:59 Intake Total 50 100 Output Total 50 Balance 0 100 Weight (lbs) 79.832 kg 83.915 kg Intake: Intake, IV Amount 50 100 Piperacillin Sodium/ 50 100 Tazobact 2.25 gm In Sodium Chloride 0.9% 50 ml @ 100 mls/hr IV Q8H [facility] Rx#:[id number] Output: Urine 50 Other: Stool Characteristics Soft Soft Soft Weight Source Bedscale Bedscale Active Medications: Current Medications Acetaminophen (Tylenol) 650 mg PO Q6H PRN PRN Reason: Pain or Fever >101 Stop: 02/14/19 23:51 Last Admin: 12/19/18 20:15 Dose: 650 mg Atorvastatin Calcium (Lipitor) 20 mg PO HS [facility] Stop: 02/15/19 20:59 Last Admin: 12/19/18 20:15 Dose: 20 mg Carvedilol (Coreg) 3.125 mg PO BIDWM [facility] Stop: 02/15/19 17:59 Last Admin: 12/19/18 17:31 Dose: 3.125 mg Dextrose (D50w) 50 ml IVP PRN PRN PRN Reason: Blood Glucose less than 70 Stop: 02/15/19 00:55 Dextrose (Glutose 40%) 18.75 gm PO PRN PRN PRN Reason: Blood Glucose less than 70 Stop: 02/15/19 00:55 Diphenhydramine HCl (Benadryl) 25 mg PO Q6H PRN PRN Reason: Itching Stop: 02/15/19 08:22 Last Admin: 12/18/18 22:06 Dose: 25 mg Docusate Sodium (Colace) 250 mg PO DAILY [facility] Stop: 02/15/19 13:44 Last Admin: 12/19/18 08:21 Dose: 250 mg Epoetin Joe (Epogen) 10,000 units SUBQ TuThSa [facility] Stop: 02/16/19 15:59 Last Admin: 12/18/18 15:59 Dose: 10,000 units Folic Acid (Folate) 1 mg PO DAILY [facility] Stop: 02/15/19 08:59 Last Admin: 12/19/18 08:21 Dose: 1 mg Glucagon (Glucagen) 1 mg IM PRN PRN PRN Reason: Blood Glucose less than 70 Stop: 02/15/19 00:55 Hydralazine HCl (Apresoline) 50 mg PO Q8H [facility] Stop: 02/15/19 08:29 Last Admin: 12/19/18 15:56 Dose: 50 mg Piperacillin Sod/Tazobactam (Sod 2.25 gm/ Sodium Chloride) 50 mls @ 100 mls/hr IV Q8H [facility] Stop: 02/15/19 16:59 Last Infusion: 12/19/18 18:31 Dose: Infused Insulin Glargine (Lantus Insulin) 14 units SUBQ HS [facility] Stop: 02/16/19 20:59 Last Admin: 12/19/18 20:14 Dose: 14 units Insulin Human Lispro (Humalog) 20 unit SUBQ QDAC [facility] Stop: 02/17/19 07:29 Last Admin: 12/19/18 06:35 Dose: 20 units Insulin Human Lispro (Humalog Insulin Sliding Scale) 0 units SUBQ ACHS [facility]; Protocol Stop: 02/15/19 11:29 Last Admin: 12/19/18 20:13 Dose: 8 units Lactobacillus Rhamnosus (Culturelle 15b) 1 each PO DAILY [facility] Stop: 02/16/19 08:59 Last Admin: 12/19/18 08:21 Dose: 1 each Lactulose (Cephulac) 20 gm PO DAILY PRN PRN Reason: Constipation Stop: 02/15/19 08:26 Losartan Potassium (Cozaar) 50 mg PO DAILY [facility] Stop: 02/15/19 08:59 Last Admin: 12/19/18 08:21 Dose: 50 mg Miscellaneous (Probiotic Screen) 1 ea PRN PRN PRN Reason: PROTOCOL Stop: 02/15/19 14:12 Miscellaneous (Vancomycin Iv Per Pharmacy) 1 ea PRN [facility] Stop: 02/15/19 15:44 Morphine Sulfate (Morphine) 1 mg IVP Q4HR PRN PRN Reason: Pain (Moderate) Stop: 02/15/19 00:02 Last Admin: 12/17/18 23:30 Dose: 1 mg Pantoprazole Sodium (Protonix) 40 mg PO QDAC [facility] Stop: 02/15/19 08:59 Last Admin: 12/19/18 06:34 Dose: 40 mg Vitamin B Complex/Vit C/Folic Acid (Vitamin B Complex W/Vitamin C) 1 tab PO DAILY [facility] Stop: 02/15/19 09:59 Last Admin: 12/19/18 08:21 Dose: 1 tab General: no acute distress, well developed, well nourished HEENT: atraumatic, normocephalic, PERRLA, EOMI Neck: no supple, no thyromegaly, no lymphadenopathy Cardiovascular: S1S2, regular Lungs: clear to auscultation bilaterally, clear to percussion Abdomen: soft, no tender, no distended, no mass Extremities: other (Right heel wound), no cyanosis, no clubbing, no edema Neurological: awake, alert, oriented Skin: other (Right heel wound) Infectious Disease Assmt/Plan - Assessment Assessment: 1. Staph sepsis, r/o endocarditis. Likely MRSA sepsis 2/2 osteomyelitis. 2. Right heel ulcer. Unstageable. susoect osteomyelitis. 3. DM2 4. HTN. 5. Anemia of CD. - Plan Plan: Will continue vanco IV and Zosyn. Wound care. Repeat blood cultures. Echo cardiogram. CT chest r/o septic emboli. 3P bone scan. Debridement. DW patient. Nutritional Asmnt/Malnutr-PDOC - Dietary Evaluation Malnutrition Findings (Please click <Entered> for more info): Nutritional Asmnt/Malnutrition Start: 12/17/18 15: 58 Text: Status: Active Freq: Protocol: Document 12/17/18 15:58 LCHENG (Rec: 12/17/18 16:28 [email or web address] [id number]) Nutritional Asmnt/Malnutrition Patient General Information Nutritional Screening Moderate Risk Consult Diagnosis right heel wound Pertinent Medical Hx/Surgical Hx HTN, DM, seizures, renal disease on dialysis, anemia, anxiety, pancreatitis, diabetic retinopathy, aortic stenosis, appendectomy, dialysis shunt. Subjective Information Consult received for right heel wound. Pt seen in bed, awake, speech not very clear. RN reported pt is on dialysis. Current Diet Order/ Nutrition Support 2gm Na Pertinent Medications lipitor, colace, folate, humalog, culturelle, protonix, piperacillin, renvela, vit B complex/vit C Pertinent Labs 12/17 Na 128, Cl 89, BUN 38, Cr 5.1, Glucose 252, POC 241-394 12/16 Na 128, Cl 88, BUN 32, Glucose 396, POC 376 Nutritional Hx/Data Height 1.73 m Height (Calculated Centimeters) 172.7 Current Weight (lbs) 79.832 kg Weight (Calculated Kilograms) 79.8 Weight (Calculated Grams) 16242.3 [place] Body Weight 154 Body Mass Index (BMI) 26.7 Weight Status Overweight GI Symptoms GI Symptoms None Last BM none Difficult in: None Usual diet at home STU, renal CCHO at care facility per pt chart. Skin Integrity/Comment: right heel wound Current %PO Good (75-100%) Estimated Nutritional Goals BEE in Kcals: Using Current wt Calories/Kcals/Kg 25-30 Kcals Calculated 0311-6039 Protein: Using Current wt Protein g/k-1.2 Protein Calculated 80-96 Fluid: ml per MD Nutritional Problem 1. Problem Problem altered nutrition related labs Etiology renal dysfunction, hyperglycemia Signs/Symptoms: BUN 38, Cr 5.1, Glucose 252, POC 241-394 Malnutrition Alert Is there a minimum of two criteria No selected? Query Text:Check all the applicable criteria. A minimum of two criteria are recommended for diagnosis of either severe or non-severe malnutrition. Malnutrition Related to Morbid Obesity Malnutrition related to morbid obesity No Intervention/Recommendation Comments 1. Recommend adding CCHO diet, renal diet with 80g protein d /t DM and renal disease on dialysis. RN Juliano notified. 2. Monitor PO intake, wt, labs and skin integrity 3. F/U as high risk in 2-3 days Expected Outcomes/Goals Expected Outcomes/Goals 1. PO intake to meet at least 75% of nutritional needs. 2. Wt stability, skin to remain intact, labs to approach WNL.
--- NOTE | 2018-12-20 02:48 | Progress Notes ---
DATE: 12/19/2018 SURGICAL PROGRESS NOTE TIME: 1:18 p.m. SUBJECTIVE: GENERAL: The patient is resting in bed comfortably, in no acute distress. VITAL SIGNS: Afebrile. Vital signs stable. HEENT AND NECK: Within normal limits. CHEST: Clear to auscultation bilaterally. CARDIAC: Regular rhythm and rate. ABDOMEN: Otherwise soft, nontender and nondistended. EXTREMITIES: His left knee is in a knee brace. Right heel has a large area of gangrene, which has wet and dry areas. It is malodorous. The foot is; otherwise, warm. There is a slightly palpable posterior tibial vessel with artery, but the dorsalis pedis is not well palpated. The left leg is otherwise within normal limits. LABORATORY DATA: The white blood cell count up to 23.0, H and H is 8 and 25 and platelet count is 307; 88 neutrophils and 0 bands. Sodium is 125, chloride is 90, BUN is 40, creatinine is 5.4 and glucose 386, which is out of control. The patient is on Lipitor, Coreg, Colace, vancomycin and Zosyn. The patient is undergoing a CT of the chest reportedly currently. The cultures showed of the nares, no MRSA isolated. Blood cultures from 12/16/2018 showed gram-positive cocci in clusters x 2 and cultures of the right foot showed many Staphylococcus aureus. IMPRESSION AND PLAN: The patient with multiple medical problems, multiple consultants on the case. The patient has ongoing CT of the chest and reportedly a bone scan that is ordered for today. The patient would probably benefit from debridement of his right heel gangrene area and this may be contributing to the patient's sepsis. The patient is currently on IV antibiotics. I was still waiting for Cardiology to clear the patient given his aortic stenosis. He has got multiple medical problems. He will be considered high risk given his medical comorbidities. Still trying to decide whether it is more appropriate to perform here now or later at another facility as there was some discussion about the patient being transferred to [facility]. We will have ongoing discussions with the nursing staff, admitting doctors and nurse case management. Consider debridement of the wound, here, possibly tomorrow. We will keep the patient n.p.o. after midnight for anticipation of procedure. JOB# [id number]
[2018-12-20 05:29] LABS: HEMATOCRIT 24.4 % (41.0-60); HEMOGLOBIN 8.2 gm/dL (12-16); MEAN CELL VOLUME 85.1 fl (80-99); MEAN CORPUSCULAR HEMOGLOBIN 28.7 pg (26.0-30.0); MEAN CORPUSCULAR HGB CONC 33.7 pg (28.0-36.0); MEAN PLATELET VOLUME 8.4 fl; PLATELET COUNT 338 Th/cmm (150-400); RED BLOOD COUNT 2.87 Mil/cmm (4.30-5.70); RED CELL DISTRIBUTION WIDTH 13.7 % (11.5-20.0)
[2018-12-20 05:32] LABS: WHITE BLOOD COUNT 26.1 Th/cmm (4.8-10.8)
[2018-12-20 05:46] LABS: ANION GAP 17.9 (7.0-16.0); CALCIUM SERUM 8.5 mg/dL (8.6-10.3); CARBON DIOXIDE 22.5 mEq/L (21.0-31.0); GFR AFRICAN-AMERICAN 10.6 ml/min (>90); GFR NON AFRICAN-AMERICAN 8.8 ml/min; MAGNESIUM 2.2 mg/dL (1.9-2.7); PHOSPHOROUS 2.6 mg/dL (2.5-5.0); POTASSIUM SERUM 4.4 mEq/L (3.5-5.1)
[2018-12-20 05:57] LABS: CREATININE - SERUM 6.9 mg/dL (0.7-1.3)
[2018-12-20 06:43] LABS: BAND NEUTROPHILE 1 % (0-10); LYMPHOCYTE 5 % (20-50); MONOCYTE 2 % (2-10); NEUTROPHILS 92 % (40-80)
[2018-12-20] MEDS: Pantoprazole 40 mg EC Tab PO SCH (08:16)
--- NOTE | 2018-12-20 08:22 | Diagnostic Imaging Report ---
CT scan of the chest without intravenous contrast HISTORY: Shortness of breath Total DLP equals 304 CTDI equals 8.5 Axial sections were obtained from a level above the clavicles down to level below the diaphragm. The heart size appears somewhat generous. Coronary artery and atherosclerotic calcification noted. Normal-sized lymph nodes are seen within the mediastinum. Evaluation the hilar and vascular structures limited due to the absence of intravenous contrast. Pleural thickening is noted within the right left lower hemithoracic regions. Haziness of the lower interstitial lung markings. However, no definite focal pulmonary processes are seen. Limited sections below the diaphragm demonstrate suggestion of hepatomegaly. Degenerative changes seen within the spine. IMPRESSION: 1. Pleural thickening within the right left lower hemithoracic regions along with nonspecific interstitial changes in the lower lobes and generalized haziness. The overall appearance suggests a chronic etiology. 2. Coronary artery and atherosclerotic vascular calcification 3. Suggestion of hepatomegaly
[2018-12-20] MEDS: INSULIN LISPRO 100 UNIT/ML VIAL SUBQ SCH (08:32)
[2018-12-20] MEDS: INSULIN LISPRO SLIDING SCALE 100 UNITS/ML UNIT SUBQ SCH ×3 (08:32→17:15)
[2018-12-20] MEDS: Lactobacillus Rhamnosus GG 15 Billion CFU CAP.SPRINK PO SCH (08:33)
[2018-12-20] MEDS: Vitamin B Complex w/Vitamin C Tab PO SCH (08:33)
--- NOTE | 2018-12-20 08:33 | Diagnostic Imaging Report ---
Radionuclide 3 phase bone scan right foot HISTORY: Osteomyelitis 24.3 mCi technetium MDP used in the exam. Initial blood flow and subsequent blood pool and delayed images were obtained. The initial blood flow/perfusion images are nondiagnostic due to difficulty in patient mobility and positioning. Blood pool and delayed images demonstrate a symmetrical appearance with the opposite side. Mild generalized increased activity noted through the tarsal regions. Findings most likely associated with chronic change. No definitive scintigraphic evidence of osteomyelitis. IMPRESSION: 1. Suboptimal/Limited exam as blood flow images were nondiagnostic due to patient's immobility and difficulty in positioning. 2. No obvious definite scintigraphic evidence of osteomyelitis.
--- NOTE | 2018-12-20 08:50 | Diagnostic Imaging Report ---
Right foot (3 views) HISTORY: Swelling, osteomyelitis Generalized soft tissue swelling about the foot. Generalized osteopenia. No definite focal lesions. No definite plain radiographic evidence of osteomyelitis. Extensive vascular calcification noted. IMPRESSION: 1. No definite acute focal bony abnormalities. Specifically, no definite plain radiographic evidence of osteomyelitis 2. Generalized soft tissue swelling 3. Extensive vascular calcification
--- NOTE | 2018-12-20 08:53 | Diagnostic Imaging Report ---
Left foot (3 views) HISTORY: Swelling, osteomyelitis. Generalized osteoporosis. No definite acute bony abnormalities. No fractures. No definite plain radiographic evidence of osteomyelitis. Extensive vascular calcification is seen. IMPRESSION: 1. No acute focal bony abnormalities. Specifically, no definite plain radiographic evidence of osteomyelitis 2. Extensive vascular calcification 3. Soft tissue swelling
--- NOTE | 2018-12-20 13:05 | General Progress Note ---
Subjective - Review of Systems Service Date: 12/20/18 Subjective: Patient still complained of pain in the right foot Patient has dialysis in tolerating well Objective - Results Result Diagrams: 12/20/18 05:17 12/20/18 05:17 Recent Labs: Laboratory Last Values WBC 26.1 Th/cmm (4.8-10.8) H* 12/20/18 05:17 RBC 2.87 Mil/cmm (4.30-5.70) L 12/20/18 05:17 Hgb 8.2 gm/dL (12-16) L 12/20/18 05:17 Hct 24.4 % (41.0-60) L 12/20/18 05:17 MCV 85.1 fl (80-99) 12/20/18 05:17 MCH 28.7 pg (26.0-30.0) 12/20/18 05:17 MCHC Differential 33.7 pg (28.0-36.0) 12/20/18 05:17 RDW 13.7 % (11.5-20.0) 12/20/18 05:17 Plt Count 338 Th/cmm (150-400) 12/20/18 05:17 MPV 8.4 fl 12/20/18 05:17 Add Manual Diff YES 12/20/18 05:17 Neutrophils % 88.1 % (40.0-80.0) H 12/17/18 05:45 Band Neutrophils % 1 % (0-10) 12/20/18 05:17 Lymphocytes % 3.4 % (20.0-50.0) L 12/17/18 05:45 Monocytes % 7.3 % (2.0-10.0) 12/17/18 05:45 Eosinophils % 1.2 % (0.0-5.0) 12/17/18 05:45 Basophils % 0.0 % (0.0-2.0) 12/17/18 05:45 Neutrophils (Manual) 92 % (40-80) H 12/20/18 05:17 Lymphocytes 5 % (20-50) L 12/20/18 05:17 Monocytes 2 % (2-10) 12/20/18 05:17 Eosinophils 0 % (0-5) 12/19/18 06:14 Basophils 0 % (0-3) 12/19/18 06:14 Platelet Estimate ADEQUATE (NORMAL) 12/19/18 06:14 RBC Morph Micro Appear NORMAL (NORMAL) 12/19/18 06:14 Smear Path Review 12/16/18 21:15 Sodium 126 mEq/L (136-145) L 12/20/18 05:17 Potassium 4.4 mEq/L (3.5-5.1) 12/20/18 05:17 Chloride 90 mEq/L (98-107) L 12/20/18 05:17 Carbon Dioxide 22.5 mEq/L (21.0-31.0) 12/20/18 05:17 Anion Gap 17.9 (7.0-16.0) H 12/20/18 05:17 BUN 56 mg/dL (7-25) H 12/20/18 05:17 Creatinine 6.9 mg/dL (0.7-1.3) H* 12/20/18 05:17 Est GFR ( Amer) 10.6 ml/min (>90) 12/20/18 05:17 Est GFR (Non-Af Amer) 8.8 ml/min 12/20/18 05:17 BUN/Creatinine Ratio 8.1 12/20/18 05:17 Glucose 276 mg/dL (70-105) H D 12/20/18 05:17 POC Glucose 237 MG/DL (70 - 105) H 12/20/18 11:40 Whole Bld Lactic Acid 1.40 mmol/L (0.60-1.99) 12/16/18 21:15 Calcium 8.5 mg/dL (8.6-10.3) L 12/20/18 05:17 Phosphorus 2.6 mg/dL (2.5-5.0) 12/20/18 05:17 Magnesium 2.2 mg/dL (1.9-2.7) 12/20/18 05:17 Troponin I 0.05 ng/mL (0.01-0.05) 12/16/18 21:15 Triglycerides 249 mg/dL (<150) H 12/17/18 05:45 Cholesterol 100 mg/dL (<200) 12/17/18 05:45 LDL Cholesterol Direct 26 mg/dL (75-193) L 12/17/18 05:45 HDL Cholesterol 17 mg/dL (23-92) L 12/17/18 05:45 TSH 0.90 uIU/ml (0.34-5.60) 12/17/18 05:45 Urine Source RANDOM 12/17/18 08:01 Urine Color YELLOW 12/17/18 08:01 Urine Clarity HAZY (CLEAR) 12/17/18 08:01 Urine pH 7.0 (4.6 - 8.0) 12/17/18 08:01 Ur Specific [place] 1.015 (1.005-1.030) 12/17/18 08:01 Urine Protein >=300 mg/dL (NEGATIVE) 12/17/18 08:01 Urine Glucose (UA) 500 mg/dL (NEGATIVE) H 12/17/18 08:01 Urine Ketones NEGATIVE mg/dL (NEGATIVE) 12/17/18 08:01 Urine Blood NEGATIVE (NEGATIVE) 12/17/18 08:01 Urine Nitrate NEGATIVE (NEGATIVE) 12/17/18 08:01 Urine Bilirubin NEGATIVE (NEGATIVE) 12/17/18 08:01 Urine Urobilinogen 0.2 E.U./dL (0.2 - 1.0) 12/17/18 08:01 Ur Leukocyte Esterase NEGATIVE (NEGATIVE) 12/17/18 08:01 Urine RBC 0-2 /hpf (0-5) H 12/17/18 08:01 Urine WBC 2-5 /hpf (0-5) 12/17/18 08:01 Ur Epithelial Cells /lpf (FEW) 12/17/18 08:01 Urine Bacteria FEW /hpf (NONE SEEN) 12/17/18 08:01 Coarse Granular Casts 0-2 /lpf (NONE SEEN) H 12/17/18 08:01 Random Vancomycin 23.8 ug/mL (5.0-40.0) 12/20/18 05:17 Influenza A (Rapid) NEG FOR INF A 12/16/18 05:50 Influenza B (Rapid) NEG FOR INF B 12/16/18 05:50 - Physical Exam Vitals and I&O: Vital Signs Temp 99.1 F 12/20/18 08:00 Pulse 78 12/20/18 08:00 Resp 18 12/20/18 09:00 BP 147/63 12/20/18 08:00 Pulse Ox 78 12/20/18 08:00 Intake & Output 12/19/18 12/20/18 12/20/18 18:59 06:59 18:59 Intake Total 100 50 Balance 100 50 Weight (lbs) 83.915 kg Intake: Intake, IV Amount 100 50 Piperacillin Sodium/ 100 50 Tazobact 2.25 gm In Sodium Chloride 0.9% 50 ml @ 100 mls/hr IV Q8H [facility] Rx#:[id number] Other: Stool Characteristics Soft Soft Weight Source Bedscale Active Medications: Current Medications Acetaminophen (Tylenol) 650 mg PO Q6H PRN PRN Reason: Pain or Fever >101 Stop: 02/14/19 23:51 Last Admin: 12/19/18 20:15 Dose: 650 mg Atorvastatin Calcium (Lipitor) 20 mg PO HS [facility] Stop: 02/15/19 20:59 Last Admin: 12/19/18 20:15 Dose: 20 mg Carvedilol (Coreg) 3.125 mg PO BIDWM [facility] Stop: 02/15/19 17:59 Last Admin: 12/20/18 08:16 Dose: Not Given Dextrose (D50w) 50 ml IVP PRN PRN PRN Reason: Blood Glucose less than 70 Stop: 02/15/19 00:55 Dextrose (Glutose 40%) 18.75 gm PO PRN PRN PRN Reason: Blood Glucose less than 70 Stop: 02/15/19 00:55 Diphenhydramine HCl (Benadryl) 25 mg PO Q6H PRN PRN Reason: Itching Stop: 02/15/19 08:22 Last Admin: 12/19/18 23:32 Dose: 25 mg Docusate Sodium (Colace) 250 mg PO DAILY [facility] Stop: 02/15/19 13:44 Last Admin: 12/20/18 08:33 Dose: Not Given Epoetin Joe (Epogen) 10,000 units SUBQ TuThSa [facility] Stop: 02/16/19 15:59 Last Admin: 12/18/18 15:59 Dose: 10,000 units Folic Acid (Folate) 1 mg PO DAILY [facility] Stop: 02/15/19 08:59 Last Admin: 12/20/18 08:33 Dose: Not Given Glucagon (Glucagen) 1 mg IM PRN PRN PRN Reason: Blood Glucose less than 70 Stop: 02/15/19 00:55 Hydralazine HCl (Apresoline) 50 mg PO Q8H [facility] Stop: 02/15/19 08:29 Last Admin: 12/20/18 08:33 Dose: Not Given Piperacillin Sod/Tazobactam (Sod 2.25 gm/ Sodium Chloride) 50 mls @ 100 mls/hr IV Q8H [facility] Stop: 02/15/19 16:59 Last Admin: 12/20/18 09:16 Dose: 100 mls/hr Insulin Glargine (Lantus Insulin) 14 units SUBQ HS [facility] Stop: 02/16/19 20:59 Last Admin: 12/19/18 20:14 Dose: 14 units Insulin Human Lispro (Humalog) 20 unit SUBQ QDAC [facility] Stop: 02/17/19 07:29 Last Admin: 12/20/18 08:32 Dose: Not Given Insulin Human Lispro (Humalog Insulin Sliding Scale) 0 units SUBQ ACHS [facility]; Protocol Stop: 02/15/19 11:29 Last Admin: 12/20/18 11:42 Dose: Not Given Lactobacillus Rhamnosus (Culturelle 15b) 1 each PO DAILY [facility] Stop: 02/16/19 08:59 Last Admin: 12/20/18 08:33 Dose: Not Given Lactulose (Cephulac) 20 gm PO DAILY PRN PRN Reason: Constipation Stop: 02/15/19 08:26 Losartan Potassium (Cozaar) 50 mg PO DAILY [facility] Stop: 02/15/19 08:59 Last Admin: 12/20/18 08:33 Dose: Not Given Miscellaneous (Probiotic Screen) 1 [facility] PRN PRN PRN Reason: PROTOCOL Stop: 02/15/19 14:12 Miscellaneous (Vancomycin Iv Per Pharmacy) 1 [facility] PRN [facility] Stop: 02/15/19 15:44 Morphine Sulfate (Morphine) 1 mg IVP Q4HR PRN PRN Reason: Pain (Moderate) Stop: 02/15/19 00:02 Last Admin: 12/17/18 23:30 Dose: 1 mg Pantoprazole Sodium (Protonix) 40 mg PO QDAC [facility] Stop: 02/15/19 08:59 Last Admin: 12/20/18 08:16 Dose: Not Given Vitamin B Complex/Vit C/Folic Acid (Vitamin B Complex W/Vitamin C) 1 tab PO DAILY [facility] Stop: 02/15/19 09:59 Last Admin: 12/20/18 08:33 Dose: Not Given General: Alert, No acute distress HEENT: Atraumatic, Mucous membr. moist/pink Neck: Supple, +2 carotid pulse wo bruit Cardiovascular: Regular rate, Normal S1, Normal S2 Lungs: Clear to auscultation Abdomen: Bowel sounds, Soft Extremities: Pulses, no Edema Neurological: Sensation intact Skin: no Rash Psych/Mental Status: Mood NL Assessment/Plan - Assessment Assessment: Right foot ulcer Hypertension Diabetes mellitus type 2 insulin-dependent Seizure disorder Iron deficiency anemia Diabetic security states Thursday end-stage renal disease on dialysis Diverticular time N Diabetic peripheral neuropathy Anxiety Old pancreatitis - Plan Plan: Patient cleared for surgery patient is awaiting debridement of ulcer Nutritional Asmnt/Malnutr-PDOC - Dietary Evaluation Malnutrition Findings (Please click <Entered> for more info): Nutritional Asmnt/Malnutrition Start: 12/17/18 15: 58 Text: Status: Active Freq: Protocol: Document 12/17/18 15:58 LCHENG (Rec: 12/17/18 16:28 LCHENG [id number]) Nutritional Asmnt/Malnutrition Patient General Information Nutritional Screening Moderate Risk Consult Diagnosis right heel wound Pertinent Medical Hx/Surgical Hx HTN, DM, seizures, renal disease on dialysis, anemia, anxiety, pancreatitis, diabetic retinopathy, aortic stenosis, appendectomy, dialysis shunt. Subjective Information Consult received for right heel wound. Pt seen in bed, awake, speech not very clear. RN reported pt is on dialysis. Current Diet Order/ Nutrition Support 2gm Na Pertinent Medications lipitor, colace, folate, humalog, culturelle, protonix, piperacillin, renvela, vit B complex/vit C Pertinent Labs 12/17 Na 128, Cl 89, BUN 38, Cr 5.1, Glucose 252, POC 241-394 12/16 Na 128, Cl 88, BUN 32, Glucose 396, POC 376 Nutritional Hx/Data Height 1.73 m Height (Calculated Centimeters) 172.7 Current Weight (lbs) 79.832 kg Weight (Calculated Kilograms) 79.8 Weight (Calculated Grams) 72258.3 [place] Body Weight 154 Body Mass Index (BMI) 26.7 Weight Status Overweight GI Symptoms GI Symptoms None Last BM none Difficult in: None Usual diet at home STU, renal CCHO at care facility per pt chart. Skin Integrity/Comment: right heel wound Current %PO Good (75-100%) Estimated Nutritional Goals BEE in Kcals: Using Current wt Calories/Kcals/Kg 25-30 Kcals Calculated 4096-0759 Protein: Using Current wt Protein g/k-1.2 Protein Calculated 80-96 Fluid: ml per MD Nutritional Problem 1. Problem Problem altered nutrition related labs Etiology renal dysfunction, hyperglycemia Signs/Symptoms: BUN 38, Cr 5.1, Glucose 252, POC 241-394 Malnutrition Alert Is there a minimum of two criteria No selected? Query Text:Check all the applicable criteria. A minimum of two criteria are recommended for diagnosis of either severe or non-severe malnutrition. Malnutrition Related to Morbid Obesity Malnutrition related to morbid obesity No Intervention/Recommendation Comments 1. Recommend adding CCHO diet, renal diet with 80g protein d /t DM and renal disease on dialysis. RN Juliano notified. 2. Monitor PO intake, wt, labs and skin integrity 3. F/U as high risk in 2-3 days Expected Outcomes/Goals Expected Outcomes/Goals 1. PO intake to meet at least 75% of nutritional needs. 2. Wt stability, skin to remain intact, labs to approach WNL.
--- NOTE | 2018-12-20 13:34 | General Progress Note ---
Subjective - Review of Systems Service Date: 12/20/18 Subjective: sleeping, comfortable Objective - Results Result Diagrams: 12/20/18 05:17 12/20/18 05:17 Recent Labs: Laboratory Last Values WBC 26.1 Th/cmm (4.8-10.8) H* 12/20/18 05:17 RBC 2.87 Mil/cmm (4.30-5.70) L 12/20/18 05:17 Hgb 8.2 gm/dL (12-16) L 12/20/18 05:17 Hct 24.4 % (41.0-60) L 12/20/18 05:17 MCV 85.1 fl (80-99) 12/20/18 05:17 MCH 28.7 pg (26.0-30.0) 12/20/18 05:17 MCHC Differential 33.7 pg (28.0-36.0) 12/20/18 05:17 RDW 13.7 % (11.5-20.0) 12/20/18 05:17 Plt Count 338 Th/cmm (150-400) 12/20/18 05:17 MPV 8.4 fl 12/20/18 05:17 Add Manual Diff YES 12/20/18 05:17 Neutrophils % 88.1 % (40.0-80.0) H 12/17/18 05:45 Band Neutrophils % 1 % (0-10) 12/20/18 05:17 Lymphocytes % 3.4 % (20.0-50.0) L 12/17/18 05:45 Monocytes % 7.3 % (2.0-10.0) 12/17/18 05:45 Eosinophils % 1.2 % (0.0-5.0) 12/17/18 05:45 Basophils % 0.0 % (0.0-2.0) 12/17/18 05:45 Neutrophils (Manual) 92 % (40-80) H 12/20/18 05:17 Lymphocytes 5 % (20-50) L 12/20/18 05:17 Monocytes 2 % (2-10) 12/20/18 05:17 Eosinophils 0 % (0-5) 12/19/18 06:14 Basophils 0 % (0-3) 12/19/18 06:14 Platelet Estimate ADEQUATE (NORMAL) 12/19/18 06:14 RBC Morph Micro Appear NORMAL (NORMAL) 12/19/18 06:14 Smear Path Review 12/16/18 21:15 Sodium 126 mEq/L (136-145) L 12/20/18 05:17 Potassium 4.4 mEq/L (3.5-5.1) 12/20/18 05:17 Chloride 90 mEq/L (98-107) L 12/20/18 05:17 Carbon Dioxide 22.5 mEq/L (21.0-31.0) 12/20/18 05:17 Anion Gap 17.9 (7.0-16.0) H 12/20/18 05:17 BUN 56 mg/dL (7-25) H 12/20/18 05:17 Creatinine 6.9 mg/dL (0.7-1.3) H* 12/20/18 05:17 Est GFR ( Amer) 10.6 ml/min (>90) 12/20/18 05:17 Est GFR (Non-Af Amer) 8.8 ml/min 12/20/18 05:17 BUN/Creatinine Ratio 8.1 12/20/18 05:17 Glucose 276 mg/dL (70-105) H D 12/20/18 05:17 POC Glucose 237 MG/DL (70 - 105) H 12/20/18 11:40 Whole Bld Lactic Acid 1.40 mmol/L (0.60-1.99) 12/16/18 21:15 Calcium 8.5 mg/dL (8.6-10.3) L 12/20/18 05:17 Phosphorus 2.6 mg/dL (2.5-5.0) 12/20/18 05:17 Magnesium 2.2 mg/dL (1.9-2.7) 12/20/18 05:17 Troponin I 0.05 ng/mL (0.01-0.05) 12/16/18 21:15 Triglycerides 249 mg/dL (<150) H 12/17/18 05:45 Cholesterol 100 mg/dL (<200) 12/17/18 05:45 LDL Cholesterol Direct 26 mg/dL (75-193) L 12/17/18 05:45 HDL Cholesterol 17 mg/dL (23-92) L 12/17/18 05:45 TSH 0.90 uIU/ml (0.34-5.60) 12/17/18 05:45 Urine Source RANDOM 12/17/18 08:01 Urine Color YELLOW 12/17/18 08:01 Urine Clarity HAZY (CLEAR) 12/17/18 08:01 Urine pH 7.0 (4.6 - 8.0) 12/17/18 08:01 Ur Specific [place] 1.015 (1.005-1.030) 12/17/18 08:01 Urine Protein >=300 mg/dL (NEGATIVE) 12/17/18 08:01 Urine Glucose (UA) 500 mg/dL (NEGATIVE) H 12/17/18 08:01 Urine Ketones NEGATIVE mg/dL (NEGATIVE) 12/17/18 08:01 Urine Blood NEGATIVE (NEGATIVE) 12/17/18 08:01 Urine Nitrate NEGATIVE (NEGATIVE) 12/17/18 08:01 Urine Bilirubin NEGATIVE (NEGATIVE) 12/17/18 08:01 Urine Urobilinogen 0.2 E.U./dL (0.2 - 1.0) 12/17/18 08:01 Ur Leukocyte Esterase NEGATIVE (NEGATIVE) 12/17/18 08:01 Urine RBC 0-2 /hpf (0-5) H 12/17/18 08:01 Urine WBC 2-5 /hpf (0-5) 12/17/18 08:01 Ur Epithelial Cells /lpf (FEW) 12/17/18 08:01 Urine Bacteria FEW /hpf (NONE SEEN) 12/17/18 08:01 Coarse Granular Casts 0-2 /lpf (NONE SEEN) H 12/17/18 08:01 Random Vancomycin 23.8 ug/mL (5.0-40.0) 12/20/18 05:17 Influenza A (Rapid) NEG FOR INF A 12/16/18 05:50 Influenza B (Rapid) NEG FOR INF B 12/16/18 05:50 - Physical Exam Vitals and I&O: Vital Signs Temp 99.1 F 12/20/18 08:00 Pulse 78 12/20/18 08:00 Resp 18 12/20/18 09:00 BP 147/63 12/20/18 08:00 Pulse Ox 78 12/20/18 08:00 Intake & Output 12/19/18 12/20/18 12/20/18 18:59 06:59 18:59 Intake Total 100 50 Balance 100 50 Weight (lbs) 83.915 kg Intake: Intake, IV Amount 100 50 Piperacillin Sodium/ 100 50 Tazobact 2.25 gm In Sodium Chloride 0.9% 50 ml @ 100 mls/hr IV Q8H [facility] Rx#:[id number] Other: Stool Characteristics Soft Soft Weight Source Bedscale Active Medications: Current Medications Acetaminophen (Tylenol) 650 mg PO Q6H PRN PRN Reason: Pain or Fever >101 Stop: 02/14/19 23:51 Last Admin: 12/19/18 20:15 Dose: 650 mg Atorvastatin Calcium (Lipitor) 20 mg PO HS [facility] Stop: 02/15/19 20:59 Last Admin: 12/19/18 20:15 Dose: 20 mg Carvedilol (Coreg) 3.125 mg PO BIDWM [facility] Stop: 02/15/19 17:59 Last Admin: 12/20/18 08:16 Dose: Not Given Dextrose (D50w) 50 ml IVP PRN PRN PRN Reason: Blood Glucose less than 70 Stop: 02/15/19 00:55 Dextrose (Glutose 40%) 18.75 gm PO PRN PRN PRN Reason: Blood Glucose less than 70 Stop: 02/15/19 00:55 Diphenhydramine HCl (Benadryl) 25 mg PO Q6H PRN PRN Reason: Itching Stop: 02/15/19 08:22 Last Admin: 12/19/18 23:32 Dose: 25 mg Docusate Sodium (Colace) 250 mg PO DAILY [facility] Stop: 02/15/19 13:44 Last Admin: 12/20/18 08:33 Dose: Not Given Epoetin Joe (Epogen) 10,000 units SUBQ TuThSa [facility] Stop: 02/16/19 15:59 Last Admin: 12/18/18 15:59 Dose: 10,000 units Folic Acid (Folate) 1 mg PO DAILY [facility] Stop: 02/15/19 08:59 Last Admin: 12/20/18 08:33 Dose: Not Given Glucagon (Glucagen) 1 mg IM PRN PRN PRN Reason: Blood Glucose less than 70 Stop: 02/15/19 00:55 Hydralazine HCl (Apresoline) 50 mg PO Q8H [facility] Stop: 02/15/19 08:29 Last Admin: 12/20/18 08:33 Dose: Not Given Piperacillin Sod/Tazobactam (Sod 2.25 gm/ Sodium Chloride) 50 mls @ 100 mls/hr IV Q8H [facility] Stop: 02/15/19 16:59 Last Admin: 12/20/18 09:16 Dose: 100 mls/hr Insulin Glargine (Lantus Insulin) 14 units SUBQ HS [facility] Stop: 02/16/19 20:59 Last Admin: 12/19/18 20:14 Dose: 14 units Insulin Human Lispro (Humalog) 20 unit SUBQ QDAC [facility] Stop: 02/17/19 07:29 Last Admin: 12/20/18 08:32 Dose: Not Given Insulin Human Lispro (Humalog Insulin Sliding Scale) 0 units SUBQ ACHS [facility]; Protocol Stop: 02/15/19 11:29 Last Admin: 12/20/18 11:42 Dose: Not Given Lactobacillus Rhamnosus (Culturelle 15b) 1 each PO DAILY [facility] Stop: 02/16/19 08:59 Last Admin: 12/20/18 08:33 Dose: Not Given Lactulose (Cephulac) 20 gm PO DAILY PRN PRN Reason: Constipation Stop: 02/15/19 08:26 Losartan Potassium (Cozaar) 50 mg PO DAILY [facility] Stop: 02/15/19 08:59 Last Admin: 12/20/18 08:33 Dose: Not Given Miscellaneous (Probiotic Screen) 1 ea PRN PRN PRN Reason: PROTOCOL Stop: 02/15/19 14:12 Miscellaneous (Vancomycin Iv Per Pharmacy) 1 ea PRN [facility] Stop: 02/15/19 15:44 Morphine Sulfate (Morphine) 1 mg IVP Q4HR PRN PRN Reason: Pain (Moderate) Stop: 02/15/19 00:02 Last Admin: 12/17/18 23:30 Dose: 1 mg Pantoprazole Sodium (Protonix) 40 mg PO QDAC [facility] Stop: 02/15/19 08:59 Last Admin: 12/20/18 08:16 Dose: Not Given Vitamin B Complex/Vit C/Folic Acid (Vitamin B Complex W/Vitamin C) 1 tab PO DAILY [facility] Stop: 02/15/19 09:59 Last Admin: 12/20/18 08:33 Dose: Not Given General: Alert, No acute distress HEENT: Atraumatic, Mucous membr. moist/pink Neck: Supple, +2 carotid pulse wo bruit Cardiovascular: Regular rate, Normal S1, Normal S2 Lungs: Clear to auscultation Abdomen: Bowel sounds, Soft Extremities: Pulses, no Edema Neurological: Sensation intact Skin: no Rash Psych/Mental Status: Mood NL Assessment/Plan - Assessment Assessment: ESRD on HD Right Heel Ulcer, possible Osteo Dyslipidemia T2DM Ess Htn Epilepsy Anemia of CD Moderate PAD SARAH 0.79 - Plan Plan: Lab - Result Diagrams 12/18/18 05:50 12/18/18 05:50 Current Medications Acetaminophen (Tylenol) 650 mg PO Q6H PRN PRN Reason: Pain or Fever >101 Stop: 02/14/19 23:51 Last Admin: 12/18/18 04:50 Dose: 650 mg Atorvastatin Calcium (Lipitor) 20 mg PO HS [facility] Stop: 02/15/19 20:59 Last Admin: 12/17/18 21:50 Dose: 20 mg Carvedilol (Coreg) 3.125 mg PO BIDWM [facility] Stop: 02/15/19 17:59 Last Admin: 12/18/18 09:19 Dose: Not Given Dextrose (D50w) 50 ml IVP PRN PRN PRN Reason: Blood Glucose less than 70 Stop: 02/15/19 00:55 Dextrose (Glutose 40%) 18.75 gm PO PRN PRN PRN Reason: Blood Glucose less than 70 Stop: 02/15/19 00:55 Diphenhydramine HCl (Benadryl) 25 mg PO Q6H PRN PRN Reason: Itching Stop: 02/15/19 08:22 Docusate Sodium (Colace) 250 mg PO DAILY [facility] Stop: 02/15/19 13:44 Last Admin: 12/18/18 09:12 Dose: 250 mg Folic Acid (Folate) 1 mg PO DAILY [facility] Stop: 02/15/19 08:59 Last Admin: 12/18/18 09:11 Dose: 1 mg Glucagon (Glucagen) 1 mg IM PRN PRN PRN Reason: Blood Glucose less than 70 Stop: 02/15/19 00:55 Heparin Sodium (Porcine) (Heparin) 0 units HD UD [facility] Stop: 12/19/18 00:00 Last Admin: 12/18/18 00:26 Dose: Not Given Hydralazine HCl (Apresoline) 50 mg PO Q8H [facility] Stop: 02/15/19 08:29 Last Admin: 12/18/18 09:20 Dose: Not Given Albumin Human (Albuminar 25%) 25 gm in 100 mls @ 50 mls/hr IV PRN PRN PRN Reason: BP Support During HD Stop: 12/18/18 23:00 Piperacillin Sod/Tazobactam (Sod 2.25 gm/ Sodium Chloride) 50 mls @ 100 mls/hr IV Q8H [facility] Stop: 02/15/19 16:59 Last Admin: 12/18/18 09:11 Dose: 100 mls/hr Magnesium Sulfate 1 gm/ Sodium (Chloride) 52 mls @ 52 mls/hr IV X1 ONE Stop: 12/18/18 16:32 Insulin Glargine (Lantus Insulin) 14 units SUBQ HS [facility] Stop: 02/16/19 20:59 Insulin Human Lispro (Humalog Insulin Sliding Scale) 0 units SUBQ ACHS [facility]; Protocol Stop: 02/15/19 11:29 Last Admin: 12/18/18 14:00 Dose: 3 units Insulin Human Lispro (Humalog) 20 unit SUBQ QDAC [facility] Stop: 02/17/19 07:29 Lactobacillus Rhamnosus (Culturelle 15b) 1 each PO DAILY [facility] Stop: 02/16/19 08:59 Last Admin: 12/18/18 09:12 Dose: 1 each Lactulose (Cephulac) 20 gm PO DAILY PRN PRN Reason: Constipation Stop: 02/15/19 08:26 Losartan Potassium (Cozaar) 50 mg PO DAILY [facility] Stop: 02/15/19 08:59 Last Admin: 12/18/18 09:19 Dose: Not Given Miscellaneous (Probiotic Screen) 1 ea PRN PRN PRN Reason: PROTOCOL Stop: 02/15/19 14:12 Miscellaneous (Vancomycin Iv Per Pharmacy) 1 ea MC PRN [facility] Stop: 02/15/19 15:44 Morphine Sulfate (Morphine) 1 mg IVP Q4HR PRN PRN Reason: Pain (Moderate) Stop: 02/15/19 00:02 Last Admin: 12/17/18 23:30 Dose: 1 mg Pantoprazole Sodium (Protonix) 40 mg PO QDAC [facility] Stop: 02/15/19 08:59 Last Admin: 12/18/18 06:31 Dose: 40 mg Vitamin B Complex/Vit C/Folic Acid (Vitamin B Complex W/Vitamin C) 1 tab PO DAILY [facility] Stop: 02/15/19 09:59 Last Admin: 12/18/18 09:12 Dose: 1 tab Lab - Result Diagrams 12/20/18 05:17 12/20/18 05:17 schedule for HD in am DC Sevelamer 2/2 to low P04 replace Mag, P04 Start Lantus 2/2 DM OOC also Epogen WBC same @ 26 f/u electrolytes, cbc in am possible debridement today Nutritional Asmnt/Malnutr-PDOC - Dietary Evaluation Malnutrition Findings (Please click <Entered> for more info): Nutritional Asmnt/Malnutrition Start: 12/17/18 15: 58 Text: Status: Active Freq: Protocol: Document 12/17/18 15:58 COURTNEY (Rec: 12/17/18 16:28 [email or web address] [id number]) Nutritional Asmnt/Malnutrition Patient General Information Nutritional Screening Moderate Risk Consult Diagnosis right heel wound Pertinent Medical Hx/Surgical Hx HTN, DM, seizures, renal disease on dialysis, anemia, anxiety, pancreatitis, diabetic retinopathy, aortic stenosis, appendectomy, dialysis shunt. Subjective Information Consult received for right heel wound. Pt seen in bed, awake, speech not very clear. RN reported pt is on dialysis. Current Diet Order/ Nutrition Support 2gm Na Pertinent Medications lipitor, colace, folate, humalog, culturelle, protonix, piperacillin, renvela, vit B complex/vit C Pertinent Labs 12/17 Na 128, Cl 89, BUN 38, Cr 5.1, Glucose 252, POC 241-394 12/16 Na 128, Cl 88, BUN 32, Glucose 396, POC 376 Nutritional Hx/Data Height 1.73 m Height (Calculated Centimeters) 172.7 Current Weight (lbs) 79.832 kg Weight (Calculated Kilograms) 79.8 Weight (Calculated Grams) 47248.3 [place] Body Weight 154 Body Mass Index (BMI) 26.7 Weight Status Overweight GI Symptoms GI Symptoms None Last BM none Difficult in: None Usual diet at home STU, renal CCHO at care facility per pt chart. Skin Integrity/Comment: right heel wound Current %PO Good (75-100%) Estimated Nutritional Goals BEE in Kcals: Using Current wt Calories/Kcals/Kg 25-30 Kcals Calculated 7824-7527 Protein: Using Current wt Protein g/k-1.2 Protein Calculated 80-96 Fluid: ml per MD Nutritional Problem 1. Problem Problem altered nutrition related labs Etiology renal dysfunction, hyperglycemia Signs/Symptoms: BUN 38, Cr 5.1, Glucose 252, POC 241-394 Malnutrition Alert Is there a minimum of two criteria No selected? Query Text:Check all the applicable criteria. A minimum of two criteria are recommended for diagnosis of either severe or non-severe malnutrition. Malnutrition Related to Morbid Obesity Malnutrition related to morbid obesity No Intervention/Recommendation Comments 1. Recommend adding CCHO diet, renal diet with 80g protein d /t DM and renal disease on dialysis. RN Juliano notified. 2. Monitor PO intake, wt, labs and skin integrity 3. F/U as high risk in 2-3 days Expected Outcomes/Goals Expected Outcomes/Goals 1. PO intake to meet at least 75% of nutritional needs. 2. Wt stability, skin to remain intact, labs to approach WNL.
[2018-12-20] MEDS ORDERED: Venelex 60gm Tube TP SCH (16:00)
--- NOTE | 2018-12-21 01:37 | Progress Notes ---
DATE: 12/20/2018 SURGICAL PROGRESS NOTE TIME: 8:13 p.m. OBJECTIVE: VITAL SIGNS: He is afebrile. Vital signs otherwise stable. GENERAL: Resting in bed comfortably, in no acute distress. CHEST: Clear to auscultation bilaterally. CARDIAC: Regular rate. ABDOMEN: Soft, nontender, nondistended. EXTREMITIES: Left knee is in a knee brace. Right heel has wet and dry areas of gangrene. Foot is warm. No obvious palpable pedal pulses noted. His labs are white blood cell count 26.1, H and H is 8 and 24, platelet count 338, he has 1 band and 92 neutrophils. Sodium is 126, chloride is 90, BUN and creatinine is 56 and 6.9, his glucose level is out of control 253, 237, 347. He is on Tylenol, Lipitor, Coreg, hydralazine, vancomycin and Zosyn. Bone scan revealed suboptimal limited exam. His blood flow images were nondiagnostic due to the patient's immobility and difficulty in positioning, no obvious definite scintigraphic evidence of osteomyelitis. CT of the chest: Pleural thickening within the right lower hemithoracic regions along with nonspecific interstitial changes in the lower lobes and generalized haziness, the overall appearance suggests chronic etiology coronary artery and atherosclerotic vascular calcification with suggestion of hepatomegaly. The foot x-ray, no definite acute focal abnormalities of the right foot, specifically no definite plain radiographic evidence of osteomyelitis, generalized soft tissue swelling, extensive vascular calcification. The foot x-ray three views of left foot showed no acute focal bony abnormalities, specifically no definite plain radiographic evidence of osteomyelitis, extensive vascular calcification with soft tissue swelling. IMPRESSION AND PLAN: The patient with peripheral vascular disease, right heel wet and dry areas of gangrene. The patient will require debridement of this area, but likely will need a Vascular Surgery evaluation as well. The arterial ultrasound reveals likely peripheral vascular disease and should be evaluated by Vascular Surgery for possible angioplasty or stenting, if indicated left knee brace. The bone scan, x-rays and chest CT results reviewed and noted. Continue IV antibiotics. We will follow the patient once the patient gets to [facility] and will likely plan for debridement at that facility. JOB# [id number]
--- NOTE | 2018-12-21 14:57 | Cardiology ---
12/18/2018 ECHOCARDIOGRAM REPORT A patient of Dr. Muse. M-MODE ECHOCARDIOGRAM: Mitral valve, anterior leaflet of mitral valve shows normal excursion, EF velocity. Posterior leaflet of the mitral valve shows normal excursion. Left ventricular posterior wall shows increased thickness, normal excursion. Interventricular septum shows increased thickness, normal excursion, hypertrophy of the left ventricle, ejection fraction 65%. Left atrium enlarged, 4.5 cm. Aortic root shows normal dimension, decreased excursion consistent with aortic stenosis. CONCLUSION: Aortic stenosis, left atrial enlargement, hypertrophy of the left ventricle, ejection fraction 65%. 2D ECHO: Long axis view showed normal sized left ventricle with hypertrophy of the left ventricle. Left atrium enlarged. Aortic root shows normal dimension with aortic stenosis. Short axis view of mitral valve is normal. Short axis view of aortic valve shows aortic stenosis. Apical four chamber view showed normal sized left ventricle. Left atrium enlarged. Right ventricular cavity, right atrium normal. CONCLUSION: Aortic stenosis, hypertrophy of the left ventricle, left atrial enlargement, ejection fraction 65%. Doppler study shows mild mitral regurgitation, mild tricuspid regurgitation, right ventricular systolic pressure 33 mmHg. Aortic valve area 1.1 square centimeter. JOB# [id number]
--- NOTE | 2018-12-27 21:53 | Discharge Summary ---
DATE OF DISCHARGE: 12/20/2018 The patient was admitted to [facility] on 12/16/2018 and discharged to [facility] on 12/20/2018. This patient came in because he was complaining of fever, cough, also right foot pain and right foot ulcer. The patient was found to have right foot ulcer. The patient was admitted for severe peripheral vascular disease, renal failure, end-stage renal dialysis, ____ dialysis, cellulitis of the right ____ rule out ischemia, rule out cellulitis, hypertension, diabetes, seizures. The patient was treated with IV antibiotics. Cardiology saw the patient ____ on the right foot and the patient is here for peripheral vascular disease. The patient ____ care including IV antibiotics and ____ assessment by the Vascular Surgeon and ____. CONDITION AT THE TIME OF DISCHARGE: Stable. JOB# [id number]
== END 2018-12-20 20:15 | DRG 871 ==
LOC: ER 19:35 → TELE 22:20
PROVIDERS: ADMIT Internal Medicine; ATTEND Internal Medicine
PROC: 5A1D70Z Performance of Urinary Filtration, Intermittent, Less than 6 Hours Per Day (ICD-10-PCS; principal; 2018-12-18)
DX: A41.1 Sepsis due to other specified staphylococcus (principal); N18.6 End stage renal disease; I12.0 Hypertensive chronic kidney disease with stage 5 chronic kidney disease or end stage renal disease; L03.116 Cellulitis of left lower limb; L97.419 Non-pressure chronic ulcer of right heel and midfoot with unspecified severity; E11.52 Type 2 diabetes mellitus with diabetic peripheral angiopathy with gangrene; L97.429 Non-pressure chronic ulcer of left heel and midfoot with unspecified severity; E11.22 Type 2 diabetes mellitus with diabetic chronic kidney disease; L89.610 Pressure ulcer of right heel, unstageable; F41.9 Anxiety disorder, unspecified; E11.319 Type 2 diabetes mellitus with unspecified diabetic retinopathy without macular edema; F17.210 Nicotine dependence, cigarettes, uncomplicated; E11.65 Type 2 diabetes mellitus with hyperglycemia; E11.621 Type 2 diabetes mellitus with foot ulcer; E11.42 Type 2 diabetes mellitus with diabetic polyneuropathy; G40.909 Epilepsy, unspecified, not intractable, without status epilepticus; D50.9 Iron deficiency anemia, unspecified; D63.8 Anemia in other chronic diseases classified elsewhere; I35.0 Nonrheumatic aortic (valve) stenosis; Z99.3 Dependence on wheelchair; Z79.4 Long term (current) use of insulin; Z99.2 Dependence on renal dialysis; Z90.49 Acquired absence of other specified parts of digestive tract
CPT/HCPCS: 36415-UA; 71045-TC; 71250-TC; 73630-TC-LT; 73630-TC-RT; 78315-TC; 80048-TC; 80061-TC; 80202-TC; 81001-TC; 82947-TC; 82948-90; 83036-90; 83605; 83735-TC; 84100-TC; 84443-TC; 84484-TC; 85007-TC; 85025-TC; 87070-90; 87804-TC; 90799; 93005; 93926-RT-TC; 94760; A9503; J0696; J0885; J1644; J1815; J2270; J2543; J3370; J3475; J7030; Z7610